=== PATIENT | female | born 1935 | race Caucasian/White ===

== ENCOUNTER 2017-07-25 11:23 | Inpatient (IN) ==
[~2017-07-25 11:23] MED LIST: CALCIUM CHLORIDE 1,000 MG/10 ML VIAL IV ONE; ETOMIDATE 20 MG/10 ML VIAL IV ONE; FUROSEMIDE 20 MG/2 ML VIAL ONE; LIDOCAINE 100 MG/5 ML SYRINGE ONE; ONDANSETRON 4 MG/2 ML VIAL ONE; PHENYLEPHRINE 50 MG/5 ML VIAL ONE; ROCURONIUM 100 MG/10 ML VIAL IV ONE; SODIUM BICARBONATE 50 MEQ/50 ML VIAL IV ONE
[2017-07-25] MEDS ORDERED: ONDANSETRON 4 MG/2 ML VIAL IV STA (11:59)
[2017-07-25] MEDS ORDERED: HYDROmorphone 2 MG/1 ML VIAL IV STA (11:59)
[2017-07-25] MEDS ORDERED: HEPARIN 5,000 UNIT/1 ML VIAL IV STA (12:00)
[2017-07-25 12:07] LABS: Basophils % 0.1 % (0.0-0.8); Hematocrit 35.5 VOL% (35.7-47.0); Immature Granulocytes % 0.7 %; Lymphocytes # 0.7 10*3/uL (1.4-4.0); Lymphocytes % 2.7 % (21.3-54.2); Mean Corpuscular HGB Conc 33.8 GM/DL (32-36); Mean Corpuscular Hemoglobin 31 PG (27-34); Mean Platelet Volume 10.6 FL (9.6-12.0); Monocytes # 1.6 10*3/uL (0.11-0.8); Monocytes % 6.1 % (1.7-12.7); Neutrophils # 24.5 10*3/uL (1.4-7.4); Neutrophils % 90.4 % (38.7-73.9); Platelet Count 337 T/CUMM (130-400); Red Cell Distribution Width 14.6 % (9.3-17.3); White Blood Count 27.1 T/CUMM (4-12)
--- NOTE | 2017-07-25 12:07 | Emergency Department Note ---
Yandel Aguirre Brooke, am scribing for, and in the presence of, Julio Avila MD 12:02 . Margarita Aguirre James D, MD, personally performed the services described in this documentation, ascribed by Joleen Humphries in my presence, and it is both accurate and complete . Arrival - Arrival Chief Complaint: Extremity Problem Stated Complaint: Extrem pain ED Nursing Triage Note: left leg pain onset x 2 months - pt was transfer from [facility] - pt states that she was seen and treated for same c/o on Monday at [facility] and dx with poor circulation - pt has discoloration to left leg and no palpable pulse present Mode of Arrival: Stretcher Limitations: No Limitations Source: Patient, EMS, RN Notes Reviewed Time Seen by Provider: 07/25/17 11:55 - History of Present Illness HPI Narrative: Patient is a 82 year old female who was brought into the ED, by EMS from [facility], with c/o left leg pain. Patient has history of peripheral vascular disease. She says she has been having the left leg pain for the past two months but the pain just recently worsened. Patient states that she was seen over the weekend in the emergency department at [facility]. Verbal report from the emergency physician transferring the patient today was that the patient had a pulse that could be dopplered. Her left leg, from the knee down, is now mottled and cold to touch. She is able to move the foot but has not sensation. Patient says she "can't hardly walk without a walker." She also has PMHx of HTN, pacemaker, obstructive sleep apnea, and COPD but no history of kidney disease. Patient quit smoking about four to five years ago. She does not have a physician that follow the peripheral vascular disease. Her Event Producer is Dr. Brown. Onset (ago): month(s) (2) Date of Last Menstrual Period: susu Allergies/Adverse Reactions: Allergies Allergy/AdvReac Type Severity Reaction Status Date / Time ampicillin Allergy Severe RASH Verified 02/08/16 06:33 Home Medications: Home Medications Medication Instructions Recorded Confirmed Type Atorvastatin [Lipitor] 20 mg PO QAM 01/15/16 07/25/17 History Benazepril HCl 20 mg PO QAM #0 01/15/16 07/25/17 History Budesonide/Formoterol 160-4.5 1 puff INH DAILY 01/15/16 07/25/17 History [Symbicort 160-4.5] Dabigatran [Pradaxa] 150 mg PO BID 01/15/16 07/25/17 History Furosemide 40 mg PO QAM 01/15/16 07/25/17 History Metoprolol Tartrate 1 tablet PO BID 01/15/16 07/25/17 History Potassium Chloride 20 meq PO QAM #0 01/15/16 07/25/17 History Albuterol Sulfate [Proair HFA] 2 puff INH Q4H PRN 07/25/17 07/25/17 History Carvedilol [Carvedilol] 3.125 mg PO BID 07/25/17 07/25/17 History Cholecalciferol [Vitamin D3] 2,000 unit PO QAM 07/25/17 07/25/17 History Clopidogrel Bisulfate [Clopidogrel] 75 mg PO QAM 07/25/17 07/25/17 History Meloxicam [Mobic] 7.5 mg PO QAM 07/25/17 07/25/17 History Montelukast Tab [Singulair Tab] 10 mg PO QAM 07/25/17 07/25/17 History Rosuvastatin Calcium [Crestor] 40 mg PO QAM 07/25/17 07/25/17 History Review of System - Review of System 12 point system: reviewed and no additional remarkable complaints except as stated - Review of System Constitutional: Absent: fever Respiratory: Absent: respiratory distress Musculoskeletal: Present: leg pain (left) Skin: Present: other (Left leg, from the knee down, is now mottled and cold to touch.). Absent: rash Medical,Surgical,& Family Hx - Medical History Cardio: History of: Hypertension, Pacemaker (DR [facility] GETTING RECORDS) HEENT: History of: Eye Problem (CATARACTS) Respiratory: History of: COPD, Obstructive Sleep Apnea (CPAP) Musculoskeletal: History of: Musculoskeletal Problems (FX RIGHT PROXIMAL HUMERUS ) - Surgical History HEENT Surgeries: Surgical HX of: Eye Surgery (CATARACTS) Abdominal Surgeries: Patient denies: Abdominal Surgery Orthopedic Surgeries: Surgical HX of;: Orthopedic Surgery (02/08/16 Sched for ORIF Rt Proximal Humerus) - Family History Family History: Reports;: Family Cancer (father), Family Heart Disease (mother) - Social History Smoking Status: Former smoker Frequency of Alcohol Use: None Type of Drug Use: None Exam Vital Signs: Vital Signs Temperature 98.1 F 07/25/17 11:46 Pulse Rate 88 07/25/17 11:46 Respiratory Rate 20 07/25/17 11:46 Blood Pressure 94/47 07/25/17 11:46 O2 Sat by Pulse Oximetry 93 L 07/25/17 11:28 GENERAL: This is a chronically ill-appearing white female in mild distress. VITAL SIGNS: Reviewed HEENT: Head is atraumatic and normocephalic. Pupils are equal round react to light. Extraocular movements are intact. Oropharynx is benign with moist mucous membranes. NECK: Neck is soft and supple without tenderness. There are no masses. There is no lymphadenopathy. LUNGS: Lungs are clear to auscultation. Chest rises symmetrically. There is no chest wall tenderness. CV: Heart is irregularly irregular without murmurs rubs or gallops. ABDOMEN: Abdomen is soft, nontender to palpation. There are no abdominal abnormal masses palpated. There is no organomegaly. Bowel sounds are present and active. SKIN: Left leg is cool and mottled from the knee distally. Patient has full range of motion her left foot. Left foot is insensate. EXTREMITIES: Patient has full range of motion without tenderness. There is no pedal edema. NEUROLOGIC: Awake alert and oriented 4. Cranial nerves II through XII are grossly intact. Motor is 5 over 5 in all extremities bilaterally. Decreased sensation in the left lower extremity from the knee distally to light touch. Course Course Narrative: Patient was given Dilaudid, Zofran, and heparin 4000 units IV push in the emergency department. Patient was given D50, insulin, and sodium bicarb for hyperkalemia. Echocardiogram was performed in the emergency department due to patient's atrial fib and possible thrombus. Patient will be taken to IR suite for arteriogram for evaluation of further intervention. - Consultations Consultation #1: Discussed with Dr. Bustos documentation lead for vascular surgery. Time: 12:54 Consultation #2: Discussed with Dr. Mtz interventional radiology. Time: 12:54 Results - Labs CBC & BMP: 07/25/17 11:48 07/25/17 11:48 Lab Results: I have reviewed the patients labs Labs: Echocardiogram preliminary report: No thrombus. - EKG EKG results: interpreted by ERMD - Impressions EKG: Atrial fib with a rate of 89, left axis deviation, low voltage QRS. - Diagnostic Findings Procedure: Chest x-ray: image reviewed by me (No cardiomegaly, no pleural effusions, pacemaker with leads present), CT: image reviewed by me, report reviewed by me (CT angiogram abdomen with femoral runoff:) Critical Care Time Critical Care Time: Yes Total Critical Care Time: 90 Disposition Clinical Impression: Peripheral vascular disease, Ischemia of left lower extremity, Hyperkalemia, Acute renal failure Case discussed with: patient Disposition: Still a Patient Condition: Guarded
--- NOTE | 2017-07-25 12:07 | Order Completion Report ---
See report scanned to EMR
[2017-07-25 12:15] LABS: INR 1.3; PT Patient Result 14.1 SECS
[2017-07-25 12:26] LABS: Lymphocytes 6 % (20-55); Platelet Estimate Adequate; Segmented Neutrophils 88 % (50-85); Total Cells Counted 100
[2017-07-25 12:27] LABS: Giant Platelets Few; Hypochromasia 1+; Ovalocytes Slight
[2017-07-25 12:29] LABS: Calcium 8.8 MG/DL (8.5-10.1); Osmolality,Calculated 275.4 MOS/KG (273-304)
--- NOTE | 2017-07-25 12:38 | XRay Report ---
Exam: XR chest 1V portable Date: 07/25/2017 11:59 AM Indication: Tobacco abuse left lower extremity pain DVT Comparison: 01/15/2016 Technical:AP Findings: Cardiac pacing device in place from a left-sided approach with atrial ventricular leads. Heart is normal in size. Mild scarring in the lung gutierrez without acute infiltrates. ASVD is present. Previous plate and screws stabilizing old right humeral head and neck fracture. No pneumothorax. Minimal apical pleural thickening on the right as compared to the left. Impression: 1. Stable appearance of the cardiac pacing device 2. Underlying component of COPD and fibrotic scarring 3. Interval placement of a side plate and screws stabilizing right humeral head and neck fracture when compared to prior study PROCEDURE INTERPRETED AT [facility] DEPARTMENT OF RADIOLOGY Final Report Signed by: Dr. Maximo Munoz
[2017-07-25 12:46] LABS: Potassium 7.9 MMOL/L (3.5-5.1)
[2017-07-25] MEDS ORDERED: ONDANSETRON 4 MG/2 ML VIAL ONE (12:46)
[2017-07-25] MEDS ORDERED: DEXTROSE 50% 25 GM/50 ML VIAL IV STA (12:46)
[2017-07-25] MEDS ORDERED: INSULIN REGULAR 100 UNIT/ML IV STA (12:46)
[2017-07-25] MEDS ORDERED: SODIUM BICARBONATE 50 MEQ/50 ML VIAL IV STA ×2 (12:46→21:31)
[2017-07-25] MEDS ORDERED: HEPARIN 5,000 UNIT/1 ML VIAL ONE ×5 (12:47→19:41)
[2017-07-25] MEDS ORDERED: HYDROmorphone 2 MG/1 ML VIAL ONE (12:47)
[2017-07-25] MEDS ORDERED: SODIUM CHLORIDE 0.9% 1,000 ML IV STA (12:52)
[2017-07-25 12:54] LABS: Apearance,Urine CLOUDY (Clear); Bilirubin,Urine Negative (Negative); Blood, Urine Moderate mg/dL (Negative); Glucose,Urine (UA) Negative (Negative); Ketones,Urine Negative (Negative); Nitrite,Urine Negative (Negative); Protein,Urine 30 MG/DL; RBC,Urine 4 /HPF (0-4); Squamous Epithelial Cell,Urine Occasional /HPF (0-10); Urine Color Yellow (Yellow); Urine Specific Gravity 1.011 (1.001-1.035); Urine Urobilinogen < 2.0 EU/DL (0.2-1.0); WBC,Urine 4 /HPF (0-6)
[2017-07-25] MEDS ORDERED: SODIUM BICARBONATE 50 MEQ/50 ML SYRINGE IV ONE ×4 (12:57→19:30)
[2017-07-25] MEDS ORDERED: DEXTROSE 50% 25 GM/50 ML SYRINGE IV ONE (12:57)
[2017-07-25] MEDS ORDERED: INSULIN REGULAR 100 UNIT/ML ONE (12:58)
[2017-07-25] MEDS ORDERED: HEPARIN/NACL 0.9% 2 UNITS/ML 0 ML IV ONE (13:43)
[2017-07-25] MEDS ORDERED: THROMBIN TOPICAL (RECOMBINANT) 5,000 UNIT VIAL TOP ONE ×2 (14:05→19:41)
[2017-07-25] MEDS ORDERED: VANCOMYCIN 500 MG VIAL ONE (14:05)
[2017-07-25] MEDS ORDERED: ALBUTEROL/IPRATROPIUM 3 ML NEB RESP TX STA (14:39)
[2017-07-25] MEDS ORDERED: CIPROFLOXACIN INJ 400 MG in PREMIX 1 EACH IV STA (14:46)
--- NOTE | 2017-07-25 14:56 | General Surg History&Physical ---
Assessment and Plan (1) Ischemia of left lower extremity Status: Acute Assessment and plan: Ms. Fay appears to have an acutely ischemic left lower leg and I suspect occlusion of the femoral artery based on the CT angiogram done in May and her current findings. I have recommended to her and have spoken with her son Casa Nieto by telephone of the significance of the current situation that I suspect that she has ischemic leg that is contributing to her acute renal failure and hyperkalemia I think that our best approach is going to be a femoral cutdown probably an endarterectomy and thrombectomy and hopefully I can restore reasonable flow into the left lower leg. I did explain that a fasciotomy may be necessary that I certainly cannot promise limb salvage. I did explain to her son that with her other multiple medical issues and her age that she may not tolerate or survive this acute illness we will give every effort we reasonably can bring her through and provide limb salvage. I did specifically explained the risks of bleeding infection limb loss worsening renal failure and acute cardiac issues. Current Visit: Yes History of Present Illness Chief complaint: acutely ischemic left lower leg History of present illness: Ms. Antonio is a 82 year old female Mrs. Antonio is an 82-year-old woman with significant past medical history but comes to the emergency room with an acutely ischemic left lower leg. She reports that for the past 3-4 weeks she has had progressive discomfort in the left lower leg she is on the physician approximately 2 weeks ago and was recommended observation she has been seen in the emergency room twice that [place] for left lower leg pain and was seen I believe the last week and seen there and at that time had a Doppler pulse in her foot also notably had a creatinine of 1.6 she comes to the emergency room here to [facility] today with an obvious acutely ischemic left lower leg she has mottling and coolness of the entire left lower leg from the knee down she has developed progressive paresthesia while in the emergency room the right leg shows evidence of chronic ischemia but no evidence of acute ischemia patient's past medical history is significant in that she apparently had an aortic stent graft placed sometime in [place] in the last 4-5 years we do not have any details of that procedure. She was telling us that she had stents in the legs but from the CTA that was done in May clearly no evidence of stents in her left lower in either lower leg. The CTA did indicate significant plaquing at the common femoral on the left and with diffuse disease up and down the superficial femoral popliteal artery appeared to be open the tibial vessels showed diffuse disease. Also on today's admission she was found to have a potassium of 7.9 and a creatinine of over 4. These are new findings and may be associated with rhabdomyolysis associated with ischemia of the left lower leg. Dr. Mtz and I discussed treatment options and in reviewing the CTA we feel that it is better to approach this with an open fashion and my plan will therefore be a left femoral artery exploration with endarterectomy thrombectomy and hopefully revascularization also consider the possibility that fasciotomies of the lower leg may be necessary. Home Medications Medication Instructions Recorded Confirmed Type Atorvastatin [Lipitor] 20 mg PO QAM 01/15/16 07/25/17 History Benazepril HCl 20 mg PO QAM #0 01/15/16 07/25/17 History Budesonide/Formoterol 160-4.5 1 puff INH DAILY 01/15/16 07/25/17 History [Symbicort 160-4.5] Dabigatran [Pradaxa] 150 mg PO BID 01/15/16 07/25/17 History Furosemide 40 mg PO QAM 01/15/16 07/25/17 History Metoprolol Tartrate 1 tablet PO BID 01/15/16 07/25/17 History Potassium Chloride 20 meq PO QAM #0 01/15/16 07/25/17 History Albuterol Sulfate [Proair HFA] 2 puff INH Q4H PRN 07/25/17 07/25/17 History Carvedilol [Carvedilol] 3.125 mg PO BID 07/25/17 07/25/17 History Cholecalciferol [Vitamin D3] 2,000 unit PO QAM 07/25/17 07/25/17 History Clopidogrel Bisulfate [Clopidogrel] 75 mg PO QAM 07/25/17 07/25/17 History Meloxicam [Mobic] 7.5 mg PO QAM 07/25/17 07/25/17 History Montelukast Tab [Singulair Tab] 10 mg PO QAM 07/25/17 07/25/17 History Rosuvastatin Calcium [Crestor] 40 mg PO QAM 07/25/17 07/25/17 History Allergies Allergy/AdvReac Type Severity Reaction Status Date / Time ampicillin Allergy Severe RASH Verified 02/08/16 06:33 Medical,Surgical,& Family Hx - Medical History Cardio: History of: Aneurysm, Hypertension, Pacemaker ([facility] GETTING RECORDS) HEENT: History of: Eye Problem (CATARACTS) Respiratory: History of: COPD, Obstructive Sleep Apnea (CPAP) Musculoskeletal: History of: Musculoskeletal Problems (FX RIGHT PROXIMAL HUMERUS ) - Surgical History HEENT Surgeries: Surgical HX of: Eye Surgery (CATARACTS) Abdominal Surgeries: Patient denies: Abdominal Surgery Orthopedic Surgeries: Surgical HX of;: Orthopedic Surgery (02/08/16 Sched for ORIF Rt Proximal Humerus) Additional Surgical History: Appears to have had a endovascular repair of an abdominal aortic aneurysm while in [place]. We do not have any details of that surgery - Family History Family History: Reports;: Family Cancer (father), Family Heart Disease (mother) - Social History Smoking Status: Former smoker Frequency of Alcohol Use: None Type of Drug Use: None Exam - Constitutional Vitals: Period Temp Pulse Resp BP Sys/Acosta Pulse Ox Last 24 Hr 98.1 F-98.1 F 84-113 16-24 84-167/47-87 91-99 General appearance: over weight - Head Head exam: Present: normal inspection - Eye Eye exam: Present: EOMI Pupils: Present: VARGAS - ENT ENT exam: Present: normal external ear exam Mouth exam: Present: normal voice - Neck Neck exam: Present: trachea midline - Respiratory Respiratory exam: Present: clear to auscultation bilaterally - Cardiovascular Cardiovascular exam: Present: RRR - GI/Abdominal GI/Abdominal exam: Present: soft - Expanded Left Lower Neuro vascular tendon exam: Present: extremity cold to touch, motor deficit, pulse deficit Gait: Present: not tested/not observed - Back Exam Back exam: Present: normal inspection - Neurological Exam Neurological exam: Present: alert, oriented X3 Speech: Present: normal - Constitutional Constitutional: Present: weakness - Cardiovascular Cardiovascular: Present: claudication, dyspnea on exertion - Respiratory Respiratory: Present: other (COPD reported still smoking) Results - Labs CBC & BMP: 07/25/17 11:48 07/25/17 11:48
[2017-07-25] MEDS ORDERED: CIPROFLOXACIN 400 MG/200 ML PREMIX IV ONE (15:13)
[2017-07-25 15:31] LABS: ABG Base Excess -6.5 MMOL/L (-2.5-2.5); ABG HCO3 19.1 MMOL/L (20-26); ABG Oxygen Saturation 98.7 % (95-100); ABG PCO2 41.9 MM HG (35-48); ABG PH 7.283 (7.35-7.45); ABG TCO2 18.4 MMOL/L (23-27); Glucose Heart Surgery 110 MG/DL (74-106); Hematocrit Heart Surgery 28.9 PERCENT (37-47); Hemoglobin Heart Surgery 9.3 G/DL (12.0-16.0); Ionized Calcium Arterial 1.37 MMOL/L (1.21-1.46); PCO2 Patient Temp Arterial 41.9 MMHG; PH Patient Temp Arterial 7.283; Patient Temperature 37 CELCIUS; Sodium Heart/CVR 129 MMOL/L (135-145)
[2017-07-25 15:34] LABS: Potassium Heart/CVR 6.4 MMOL/L (3.5-5.1)
[2017-07-25] MEDS ORDERED: ONDANSETRON 4 MG/2 ML VIAL IV PRN (17:55)
[2017-07-25] MEDS ORDERED: LACTATED RINGERS 1,000 ML IV SCH (18:00)
--- NOTE | 2017-07-25 18:12 | Operative Note ---
Date of procedure: 07/25/17 Procedure: Dr. Bustos operative report Adriel Antonio. Surgeon: Akash Interventional radiologist: Biib Anesthesiologist: Kitty rich Preoperative diagnosis: Acutely ischemic left leg Postoperative diagnosis: Acutely ischemic left leg secondary to the left iliac and femoral occlusion. Procedure: Left common femoral artery endarterectomy with patch graft angioplasty on table arteriography and placement of left external iliac fluency stent. Indication for the procedure: Ms. Nuñez is an 82-year-old woman who comes to the emergency room today with acutely ischemic left leg interestingly she had been having progressive symptoms over the last months at a CT angiogram done approximately a month ago that revealed an old aortic endograft assumed for aneurysmal disease the CT scan is evaluated Dr. Mtz and I evaluated the situation and felt that an exploration of the left common femoral artery with thrombectomy and angioplasty endarterectomy would be appropriate was discussed this with Ms. Antonio and her son by telephone and they agreed with the plan. Description of the procedure: After the induction of general endotracheal anesthesia the patient's abdomen and left leg to the ankle are prepped with ChloraPrep and draped in usual fashion Ioban was placed over the groin and foot was placed in isolation bag I made an incision over the femoral canal and carried this down to the femoral canal initially to the femoral artery I exposed the superficial femoral artery and then the profunda and then noted fairly extensive scarring of the common femoral and the distal external iliac associated with the closure of her artery from the endograft I assume it appeared that there were some gm or perhaps a closure device I had not seen a significant scar in area so I think this may have been a percutaneous closure device. It arrived there was a difficult dissection until I could get well under the inguinal ligament and controlled external iliac artery noting a very poor pulse at this stage I control the external iliac artery the profunda and superficial femoral arteries the patient had been given heparin preoperatively was given another 2000 of heparin intraoperatively I opened the artery on the proximal superficial femoral noting extensive atherosclerotic changes there was some backbleeding from the superficial femoral dissected further down actually did a proximal endarterectomy came to better superficial femoral artery approximately 2 cm distal to the bifurcation I was able to pass a Lizeth catheter to about the level of the proximal popliteal it would not pass any further and I did not attempt to force it I did have backbleeding this was controlled with a vessel loop I then has severe plaquing at the origin of the profunda and there was extensive scarring on the anterior aspect of the superficial femoral artery I opened these and did an endarterectomy of the area I did get backbleeding from the profunda but felt I needed to dissected further out to get an adequate endarterectomy this was done down to the first branches of the profunda this was controlled with a vessel loop and I did a partial endarterectomy I did an endarterectomy of the proximal profunda and then did endarterectomy of the common femoral but did not have very good flow from proximal I was able to pass a catheter and a Glidewire up into the graft Dr. tMz joined the case at this point in time we did arteriography examining the endograft noting good flow we had stent actually pass the hypogastric artery and there was extensive plaquing of the external iliac Dr. Mtz then I was able to pass a 8 x 6 60 fluency covered graft into the external iliac we did a completion arteriogram that showed no extravasation and what appeared to be good flow to the level of our endarterectomy I did note markedly improved pulse and flow at this level I chose a bovine pericardial patch trimmed it to fit over the arteriotomy I combined the proximal profunda and superficial femoral posteriorly with 6-0 Prolene suture and then trimmed the larger of the bovine pericardial patches and used it to close the arteriotomy with running 6-0 Prolene suture flushed approximately prior to completing the anastomosis and then restored flow noting a good flow into the superficial femoral and reasonable flow into the profunda. Heparin was partially reversed with 25 protamine I did suture a couple of bleeding sites I used Tisseel over the arteriotomy notably this patient had been on Pradaxa which we did not try to reverse prior to the surgery we had fair control I used a 383 32nd Hemovac drain brought out inferior to the incision to allow drainage of the site this was then closed with 2 layers of 2-0 Monocryl and skin clips blood loss is estimated at 450 cc her foot appeared to be showing improved perfusion at completion of the procedure with the bit more pinkness as opposed to the mottled cyanotic foot that was present when we started patients taken to recovery room in critical condition due to her overall medical status and the acuteness of the surgical intervention that we had to employ sponge needle and instrument counts are correct. Surgeon / Physician: Demario Bustos Results - Labs CBC & BMP: 07/25/17 15:25 07/25/17 11:48 Discharge Plan - Discharge Medications No Action Benazepril HCl 20 mg PO QAM #0 Atorvastatin [Lipitor] 20 mg PO QAM Dabigatran [Pradaxa] 150 mg PO BID Budesonide/Formoterol 160-4.5 [Symbicort 160-4.5] 1 puff INH DAILY Furosemide 40 mg PO QAM Metoprolol Tartrate 1 tablet PO BID Potassium Chloride 20 meq PO QAM #0 Rosuvastatin Calcium [Crestor] 40 mg PO QAM Montelukast Tab [Singulair Tab] 10 mg PO QAM Meloxicam [Mobic] 7.5 mg PO QAM Carvedilol [Carvedilol] 3.125 mg PO BID Albuterol Sulfate [Proair HFA] 2 puff INH Q4H PRN PRN Reason: Shortness Of Breath/Wheezing Clopidogrel Bisulfate [Clopidogrel] 75 mg PO QAM Cholecalciferol [Vitamin D3] 2,000 unit PO QAM - Follow Up or Referral - Forms/Instructions
--- NOTE | 2017-07-25 18:21 | Anesthesia Post-Op ---
Anesthesia Post OP - Post Ansesthetic Evaluation Patient seen in post op: Yes Resp: within normal limits (pt remains ventikated) CV: within normal limits (pt remains on trisha gtt) Mental: within normal limits (pt remains sedate) Temp: within normal limits [id number]: within normal limits Nausea and Vomiting: within normal limits Pain: within normal limits
--- NOTE | 2017-07-25 18:36 | Event Note ---
Ms. Antonio is reasonably stable postop that foot is still cool but the lower leg seems to be warming up. She has got a good bit of continued bruising into the Hemovac think this may be the Pradaxa but I do not think we have the reversing agent, the use of sandbag and the Hemovac drain to try to control it and hopefully the bleeding will slow down as time goes by
[2017-07-25] MEDS: PHENYLEPHRINE DRIP 40 MG/250 ML PREMIX IV SCH ×2 (18:40→21:46)
[2017-07-25] MEDS ORDERED: SODIUM CHLORIDE 0.9% 250 ML IV PRN ×2 (18:40→18:44)
[2017-07-25] MEDS ORDERED: PHENYLEPHRINE DRIP 40 MG/250 ML PREMIX IV ONE (18:42)
[2017-07-25 18:48] LABS: ABG Base Excess -0.9 MMOL/L (-2.5-2.5); ABG Oxygen Saturation 40.2 % (95-100); ABG PCO2 48.3 MM HG (35-48); ABG PH 7.327 (7.35-7.45); ABG TCO2 24.1 MMOL/L (23-27)
[2017-07-25 18:49] LABS: ABG PO2 25.6 MM HG (80-95)
[2017-07-25] MEDS ORDERED: ALBUTEROL 2.5 MG/3 ML NEB RESP TX PRN (19:00)
[2017-07-25 19:05] LABS: Basophils % 0.1 % (0.0-0.8); Eosinophils # 0.1 10*3/uL (0.0-0.87); Eosinophils % 0.3 % (0.00-10.9); Hematocrit 19.4 VOL% (35.7-47.0); Hemoglobin 6.7 GM/DL (12.0-16.0); Immature Granulocytes % 1.1 %; Immature Granulocytes Absolute 0.22 #; Lymphocytes # 2.3 10*3/uL (1.4-4.0); Mean Corpuscular HGB Conc 34.5 GM/DL (32-36); Mean Corpuscular Hemoglobin 32 PG (27-34); Mean Corpuscular Volume 91.5 FL (87-102); Monocytes % 9.4 % (1.7-12.7); Neutrophils # 16.3 10*3/uL (1.4-7.4); Neutrophils % 78.1 % (38.7-73.9); Platelet Count 241 T/CUMM (130-400); Red Blood Count 2.12 MC/CUMM (3.8-5.5); Red Cell Distribution Width 14.6 % (9.3-17.3); White Blood Count 20.8 T/CUMM (4-12)
--- NOTE | 2017-07-25 19:09 | Event Note ---
Ms. Penaloza was initially stable on arrival in his care unit after surgery but then suddenly developed hypotension she has been started on Ahmet-Synephrine with blood pressure now holding at about 8070-80 systolic heart rate is been's as it was in the low 100s. We do not have an immediate postop H&H but she seems to be developing a retroperitoneal hematoma on the left side which is not unexpected with the stenting that we did of the external iliac artery. She is on Plavix and Pradaxa . I have concerns that she is developed this in the area of the external iliac stenting and feel that an exploration may be necessary urgently. IV access was difficult and I have placed a right internal jugular catheter under ultrasound guidance urgently in the intensive care unit chest x- ray shows it in good position also shows no evidence of pneumothorax to be the cause of tension. My thoughts are going to be to go ahead and transfuse 1 unit of platelets 2 fresh frozen and 2 units of packed cells and plan to probably go to the emergency to the operating room for attempt to control the bleeding
[2017-07-25] MEDS ORDERED: SODIUM CHLORIDE 0.9% 1,000 ML IV ONE ×2 (19:21→23:02)
[2017-07-25 19:24] LABS: ABG Base Excess 17.7 MMOL/L (-2.5-2.5); ABG HCO3 41.7 MMOL/L (20-26); ABG Oxygen Saturation 99.9 % (95-100); ABG PH 7.568 (7.35-7.45); ABG TCO2 40.4 MMOL/L (23-27)
--- NOTE | 2017-07-25 19:24 | Event Note ---
Ms. Reyes continues to be hypotensive H&H is 6 and 19 I think that it is imperative that we return to the operating room for this retroperitoneal hematoma. I discussed this with both her sons explaining the critical nature of her illness and what I hoping to try to do the understand and agree.
[2017-07-25 19:30] LABS: Lymphocytes 10 % (20-55); Platelet Estimate Adequate; Segmented Neutrophils 83 % (50-85); Total Cells Counted 100
[2017-07-25] MEDS ORDERED: ROCURONIUM 100 MG/10 ML VIAL IV ONE (19:52)
[2017-07-25 19:57] LABS: Calcium 10.1 MG/DL (8.5-10.1); Osmolality,Calculated 298.7 MOS/KG (273-304)
[2017-07-25] MEDS: IDARUCIZUMAB IV SCH ×2 (20:00→21:41)
[2017-07-25] MEDS ORDERED: MICROFIBRILLAR COLLAGEN POWDER 1 GM CAN TOP ONE (20:14)
--- NOTE | 2017-07-25 20:23 | XRay Report ---
Portable chest Exam date: 07/25/2017 6:56 PM Indication: Line placement Comparison: Same date at 1242 hours Findings: Cardiomediastinal contours are stable. Interval satisfactory intubation and right jugular central venous catheter placement. Cardiac pacemaker remains unchanged in position. Lungs are clear bilaterally. No acute osseous abnormalities. Remote healed right second and third rib fractures are noted. Visualized upper abdomen demonstrates no acute pathology. Impression: Satisfactory tube and line placement. No acute cardiopulmonary findings PROCEDURE INTERPRETED AT [facility] DEPARTMENT OF RADIOLOGY Final Report Signed by: Hari Jacobs MD
--- NOTE | 2017-07-25 20:30 | Operative Note ---
Date of procedure: 07/25/17 Procedure: Adriel Antonio operative report Dr. Bustos. Surgeon: Akash Anesthesia: Kitty general endotracheal Preoperative diagnosis: Suspected left retroperitoneal hematoma Postoperative diagnosis modest left retroperitoneal hematoma Operation: Exploration of left retroperitoneal hematoma Indications: Ms. Fay 82-year-old woman had undergone a left femoral endarterectomy patch grafting and placement intraoperatively of the left external iliac stent due to extensive atherosclerotic disease this was a covered stent but there was some suggestion of a tear at the time of completion arteriography did not reveal extravasation the patient been taken to the recovery room and are to recover in the intensive care unit developed severe hypotension and modest tachycardia her H&H dropped precipitously to 6 and 19 felt that there was continued bleeding in the left retroperitoneal in the area of the iliac stent and recommended to her son's an exploration for control of any bleeding that was ongoing that they understood and accepted Description of the procedure patient is placed on the operating table in her lower abdomen prepped with ChloraPrep and Ioban and draped in usual fashion I made a left lower quadrant incision carried this in a muscle-splitting fashion into the retroperitoneum and then entered into the retroperitoneum along the left external and internal iliac arteries I noted moderate hematoma diffusely in the retroperitoneum but not a large hematoma as I had expected define I suspected 200 cc or less in the entire retroperitoneum although there was some dissection further up I did not encounter a large hematoma. I examined the artery thoroughly I can easily palpate the stents and visualizing through the artery there was no tear and no ongoing bleeding I continued this all the way down to the area of the recent surgery and again no significant hematoma or ongoing bleeding I therefore packed this area with Avitene placed a 10 SABI drain and brought it out superior to the incision and then closed the incision in layers with 2-0 Monocryl through the transversalis and internal oblique and through the external oblique subcu and then closed the skin with skin clips active blood loss intraoperatively is less than 100 cc sponge needle and his counts are correct the patient returns to intensive care in critical condition but improving with transfusion Surgeon / Physician: Demario Bustos Results - Labs CBC & BMP: 07/25/17 19:00 07/25/17 19:00 Discharge Plan - Discharge Medications No Action Benazepril HCl 20 mg PO QAM #0 Atorvastatin [Lipitor] 20 mg PO QAM Dabigatran [Pradaxa] 150 mg PO BID Budesonide/Formoterol 160-4.5 [Symbicort 160-4.5] 1 puff INH DAILY Furosemide 40 mg PO QAM Metoprolol Tartrate 1 tablet PO BID Potassium Chloride 20 meq PO QAM #0 Rosuvastatin Calcium [Crestor] 40 mg PO QAM Montelukast Tab [Singulair Tab] 10 mg PO QAM Meloxicam [Mobic] 7.5 mg PO QAM Carvedilol [Carvedilol] 3.125 mg PO BID Albuterol Sulfate [Proair HFA] 2 puff INH Q4H PRN PRN Reason: Shortness Of Breath/Wheezing Clopidogrel Bisulfate [Clopidogrel] 75 mg PO QAM Cholecalciferol [Vitamin D3] 2,000 unit PO QAM - Follow Up or Referral - Forms/Instructions
[2017-07-25] MEDS ORDERED: ALBUTEROL/IPRATROPIUM 3 ML NEB RESP TX ONE (21:02)
[2017-07-25 21:09] LABS: Hematocrit 20.7 VOL% (35.7-47.0); Hemoglobin 7.2 GM/DL (12.0-16.0)
[2017-07-25 21:19] LABS: INR 3.2
[2017-07-25 21:21] LABS: PT Patient Result 33.6 SECS; Partial Thromboplastin Time 82.5 SECS (0-40)
[2017-07-25 21:26] LABS: ABG Base Excess -5.5 MMOL/L (-2.5-2.5); ABG HCO3 19.9 MMOL/L (20-26); ABG Oxygen Saturation 99.4 % (95-100); ABG PCO2 39.4 MM HG (35-48); ABG PH 7.318 (7.35-7.45)
[2017-07-25] MEDS ORDERED: AMIODARONE INJ 450 MG in DEXTROSE 5% 241 ML IV SCH (21:30)
--- NOTE | 2017-07-25 21:30 | Anesthesia Procedures ---
Anesthesia Procedures - Arterial Line Consent obtained arterial line: written consent Time out performed arterial line: No (emergency) Size (Gauge): 20 Technique used arterial line: guide wire technique Post-Procedure: dry sterile dressing placed Patient tolerated procedure arterial line: well Complications art line: none Site: left, radial (per Dr. Tang)
[2017-07-25 21:34] LABS: Albumin 1.9 G/DL (3.4-5.0); Bilirubin,Total 0.4 MG/DL (0.2-1.0); Calcium 8.6 MG/DL (8.5-10.1); Total Protein 3.8 G/DL (6.4-8.3)
[2017-07-25 21:39] LABS: Potassium 6.2 MMOL/L (3.5-5.1)
[2017-07-25] MEDS: CARVEDILOL 3.125 MG TABLET PO SCH (22:13)
[2017-07-25] MEDS: METOPROLOL TARTRATE 25 MG TABLET PO SCH (22:13)
--- NOTE | 2017-07-25 22:59 | Order Completion Report ---
See report scanned to EMR
[2017-07-25 23:00] LABS: Hematocrit 27.3 VOL% (35.7-47.0); Hemoglobin 9.5 GM/DL (12.0-16.0)
[2017-07-25] MEDS ORDERED: fentaNYL 100 MCG/2 ML VIAL ONE (23:02)
[2017-07-25] MEDS ORDERED: MIDAZOLAM 2 MG/2 ML VIAL ONE (23:02)
[2017-07-25] MEDS: PHENYLEPHRINE INJ 80 MG in SODIUM CHLORIDE 0.9% 242 ML IV SCH (23:02)
[2017-07-25] MEDS ORDERED: FUROSEMIDE 20 MG/2 ML VIAL IV ONE (23:11)
[2017-07-25] MEDS: SODIUM CHLORIDE 0.9% 1,000 ML IV SCH (23:30)
[2017-07-26] MEDS ORDERED: SODIUM BICARBONATE 50 MEQ/50 ML SYRINGE IV ONE (01:00)
[2017-07-26] MEDS: IDARUCIZUMAB IV SCH ×2 (01:40→01:49)
[2017-07-26] MEDS: PHENYLEPHRINE INJ 80 MG in SODIUM CHLORIDE 0.9% 242 ML IV SCH ×4 (03:10→17:50)
[2017-07-26] MEDS: HYDROmorphone 2 MG/1 ML VIAL IV PRN ×5 (04:15→21:12)
[2017-07-26 04:16] LABS: ABG Base Excess -3.6 MMOL/L (-2.5-2.5); ABG HCO3 20.9 MMOL/L (20-26); ABG Oxygen Saturation 97.2 % (95-100); ABG PCO2 35.4 MM HG (35-48); ABG PH 7.388 (7.35-7.45); ABG PO2 99.2 MM HG (80-95); ABG TCO2 21.9 MMOL/L (23-27)
[2017-07-26 04:18] LABS: Basophils % 0.1 % (0.0-0.8); Hematocrit 31.1 VOL% (35.7-47.0); Hemoglobin 10.9 GM/DL (12.0-16.0); Immature Granulocytes % 0.5 %; Immature Granulocytes Absolute 0.07 #; Lymphocytes # 0.5 10*3/uL (1.4-4.0); Lymphocytes % 3.2 % (21.3-54.2); Mean Corpuscular Hemoglobin 30 PG (27-34); Mean Corpuscular Volume 84.1 FL (87-102); Mean Platelet Volume 10.5 FL (9.6-12.0); Monocytes # 0.7 10*3/uL (0.11-0.8); Monocytes % 4.5 % (1.7-12.7); Neutrophils % 91.7 % (38.7-73.9); Platelet Count 167 T/CUMM (130-400); Red Cell Distribution Width 18.4 % (9.3-17.3); White Blood Count 15.2 T/CUMM (4-12)
[2017-07-26 04:48] LABS: Calcium 8.2 MG/DL (8.5-10.1); Osmolality,Calculated 307.7 MOS/KG (273-304); Potassium 5.6 MMOL/L (3.5-5.1)
[2017-07-26] MEDS ORDERED: CALCIUM GLUCONATE 1,000 MG in SODIUM CHLORIDE 0.9% 100 ML IV ONE (05:00)
[2017-07-26 05:16] LABS: INR 1.2; PT Patient Result 12.8 SECS; Partial Thromboplastin Time 29.9 SECS (0-40)
[2017-07-26 06:06] LABS: Band Neutrophils 8 % (0-10); Lymphocytes 7 % (20-55); Promyelocytes 1 %; Segmented Neutrophils 80 % (50-85); Total Cells Counted 100
[2017-07-26 06:07] LABS: Burr Cells Slight; Hypochromasia 1+; Microcytosis 1+; Platelet Estimate Adequate
[2017-07-26] MEDS: PHENYLEPHRINE DRIP 40 MG/250 ML PREMIX IV SCH ×3 (06:34→21:06)
--- NOTE | 2017-07-26 06:34 | Pulmonology Consult Note ---
Assessment and Plan (1) Acute renal failure Status: Acute Assessment and plan: Creatinine elevated to 3.8 with hyperkalemia. Treating with hydration. Need renal to see. She does have adequate urine output. Current Visit: Yes (2) Ischemia of left lower extremity Status: Acute Assessment and plan: Status post endarterectomy left femoral artery. Current Visit: Yes (3) COPD (chronic obstructive pulmonary disease) Status: Acute Assessment and plan: Patient admits to having COPD. She is a former smoker. I will put her on regular dosing of DuoNeb's. No bronchospasm at present. I do not see any need for steroids. Current Visit: No (4) Postoperative respiratory failure Status: Acute Assessment and plan: ABGs acceptable. We will reduce FiO2. Start weaning trials. Need to get blood pressure stabilized and acidosis improved before we can get her extubated. Current Visit: Yes History of Present Illness Chief complaint: Left femoral endarterectomy post-op History of present illness: Ms. Antonio is a 82 year old female who came in with a cold painful left leg and was taken to surgery. She had a left femoral endarterectomy with a patch graft. Postoperatively she had retroperitoneal hematoma and had to go back to surgery. Presently she is on the ventilator. She is requiring pressors. She is responsive. She relates that she has a history of smoking and does have COPD. Not able to get more detailed history from the patient and she is on the ventilator. She has a mild metabolic acidosis. She has acute kidney injury. Likely and rhabdomyolysis Home Medications Medication Instructions Recorded Confirmed Type Atorvastatin [Lipitor] 20 mg PO QAM 01/15/16 07/25/17 History Benazepril HCl 20 mg PO QAM #0 01/15/16 07/25/17 History Budesonide/Formoterol 160-4.5 1 puff INH DAILY 01/15/16 07/25/17 History [Symbicort 160-4.5] Dabigatran [Pradaxa] 150 mg PO BID 01/15/16 07/25/17 History Furosemide 40 mg PO QAM 01/15/16 07/25/17 History Metoprolol Tartrate 1 tablet PO BID 01/15/16 07/25/17 History Potassium Chloride 20 meq PO QAM #0 01/15/16 07/25/17 History Albuterol Sulfate [Proair HFA] 2 puff INH Q4H PRN 07/25/17 07/25/17 History Carvedilol [Carvedilol] 3.125 mg PO BID 07/25/17 07/25/17 History Cholecalciferol [Vitamin D3] 2,000 unit PO QAM 07/25/17 07/25/17 History Clopidogrel Bisulfate [Clopidogrel] 75 mg PO QAM 07/25/17 07/25/17 History Meloxicam [Mobic] 7.5 mg PO QAM 07/25/17 07/25/17 History Montelukast Tab [Singulair Tab] 10 mg PO QAM 07/25/17 07/25/17 History Rosuvastatin Calcium [Crestor] 40 mg PO QAM 07/25/17 07/25/17 History Allergies Allergy/AdvReac Type Severity Reaction Status Date / Time ampicillin Allergy Severe RASH Verified 02/08/16 06:33 ROS unobtainable: due to endotracheal tube Exam (Pulmonay) H&P - Constitutional Vitals: Period Temp Pulse Resp BP Sys/Acosta Pulse Ox Last 24 Hr 93.9 F-98.1 F 84-118 10-24 57-167/37-101 80-100 Exam: Patient is on the ventilator, but responsive. She is calm. She nods to questions. Vital signs normal except her systolic blood pressure is 115 on pressure pulse is around 115 as well. Pupils react to light. Orotracheal tube is in place. Neck is supple. Chest shows prolonged expiratory phase but is otherwise clear. I do not hear any wheezing. Heart rate is rapid no murmurs. Abdomen soft. Some mild lower abdominal tenderness. Bowel sounds decreased but present. Extremities no clubbing cyanosis edema. Left leg bandaged Medical,Surgical,& Family Hx - Medical History Cardio: History of: Aneurysm, Hypertension, Pacemaker ([facility] GETTING RECORDS) HEENT: History of: Eye Problem (CATARACTS) Respiratory: History of: COPD, Obstructive Sleep Apnea (CPAP) Musculoskeletal: History of: Musculoskeletal Problems (FX RIGHT PROXIMAL HUMERUS ) - Surgical History Neurologic Surgeries: Patient denies: Neurologic Surgery HEENT Surgeries: Surgical HX of: Eye Surgery (CATARACTS) Abdominal Surgeries: Patient denies: Abdominal Surgery Reproductive Surgeries: Patient denies;: Gynecologic Surgery Orthopedic Surgeries: Surgical HX of;: Orthopedic Surgery (02/08/16 Sched for ORIF Rt Proximal Humerus) - Family History Family History: Reports;: Family Cancer (father), Family Heart Disease (mother) - Social History Smoking Status: Former smoker Frequency of Alcohol Use: None Type of Drug Use: None Results - Labs CBC & BMP: 07/26/17 04:00 07/26/17 04:00 Lab Results: I have reviewed the past 24 hour labs - Diagnostic Findings Procedure: Chest x-ray: image reviewed by me (Lungs clear. ET tube in good position)
[2017-07-26] MEDS ORDERED: MIDAZOLAM 2 MG/2 ML VIAL ONE (07:19)
[2017-07-26] MEDS ORDERED: fentaNYL 100 MCG/2 ML VIAL ONE (07:19)
[2017-07-26] MEDS: ALBUTEROL/IPRATROPIUM 3 ML NEB RESP TX SCH ×3 (07:31→19:02)
--- NOTE | 2017-07-26 08:06 | XRay Report ---
Exam: XR chest 1V portable Date: 07/26/2017 4:00 AM Indication: Follow-up intubation respiratory failure Comparison: 07/25/2017 Technical: AP Findings: Endotracheal tube nasogastric tube left-sided cardiac pacing device with atrial ventricular leads and a right IJ catheter is present. Right humeral head and neck fixation with sideplate and screws. No obvious infiltrates or effusions with ASVD. Cardiac pad is present external cardiac leads are noted. Impression: 1. Stable appearance of the life support tubing 2. No obvious infiltrates or effusions or pneumothorax 3. No significant interval change with previous right humeral head and neck fixation device noted PROCEDURE INTERPRETED AT [facility] DEPARTMENT OF RADIOLOGY Final Report Signed by: Dr. Maximo Munoz
--- NOTE | 2017-07-26 08:08 | Event Note ---
This morning Ms. Reyes remains on the ventilator and on high dose of Ahmet- Synephrine to help maintain blood pressure otherwise she has been relatively stable in this critical situation. He is making some urine and creatinine is 3.8 which is slightly down from before it was yesterday. H&H is stable and 31 white blood count as expected 50,000 platelet count is up a bit as well. Her left lower quadrant and groin are without significant hematoma modest drainage from the SABI and the Hemovac drains. Both feet show significant ischemia this is likely related to her severe peripheral vascular disease in addition to the large dose of pressor agents that she is on. She does appear to be awake and responsive appropriately. There was a good bit of oozing from her mouth and nose last night as well as from the wound she was therefore given extra fresh frozen plasma and Pradaxa reversal. This seems to have ceased this morning. We may try starting Lovenox this evening Primary goal would be if we can get her off the pressors.
[2017-07-26 08:51] LABS: ABG Base Excess -1.5 MMOL/L (-2.5-2.5); ABG HCO3 22.8 MMOL/L (20-26); ABG Oxygen Saturation 96.8 % (95-100); ABG PCO2 36.7 MM HG (35-48); ABG PH 7.411 (7.35-7.45); ABG PO2 93.6 MM HG (80-95); ABG TCO2 23.9 MMOL/L (23-27); Glucose Heart Surgery 78 MG/DL (74-106); Hemoglobin Heart Surgery 10.4 G/DL (12.0-16.0); Potassium Heart/CVR 5.4 MMOL/L (3.5-5.1)
[2017-07-26] MEDS ORDERED: FUROSEMIDE 40 MG TABLET PO SCH (09:00)
[2017-07-26] MEDS ORDERED: MONTELUKAST 10 MG TABLET PO SCH (09:00)
[2017-07-26] MEDS ORDERED: CLOPIDOGREL 75 MG TABLET PO SCH ×2 (09:00)
[2017-07-26] MEDS ORDERED: BENAZEPRIL 10 MG TABLET PO SCH (09:00)
[2017-07-26] MEDS ORDERED: ASPIRIN CHEW 81 MG TABLET PO SCH (09:00)
[2017-07-26 09:15] LABS: Partial Thromboplastin Time 54.3 SECS (0-40)
[2017-07-26] MEDS: CARVEDILOL 3.125 MG TABLET PO SCH (09:21)
[2017-07-26] MEDS: METOPROLOL TARTRATE 25 MG TABLET PO SCH ×2 (09:21→21:23)
[2017-07-26] MEDS: BUDESONIDE/FORMOTEROL 160-4.5 INHALER 6 GM INH SCH (09:22)
--- NOTE | 2017-07-26 10:05 | Ultrasound Report ---
Exam: US renal Bilateral Date: 07/26/2017 8:39 AM Indication: Renal failure Comparison: None Findings: Right kidney. 8.1 x 3.9 x 4.4 cm. There is increased echogenicity and questionable tiny amount of perinephric fluid present. Normal color flow is otherwise noted. No focal mass. Left kidney. 9.5 x 5.1 x 4.7 cm . There is mild increased echogenicity and minimal perinephric fluid collection. Normal color flow present. No hydronephrosis or perinephric fluid collections or focal mass present. Impression: 1. Medical renal disease of the kidneys. Ultrasound images were stored and captured PROCEDURE INTERPRETED AT [facility] DEPARTMENT OF RADIOLOGY Final Report Signed by: Dr. Maximo Munoz
--- NOTE | 2017-07-26 10:18 | Cardiology Consult Note ---
Sukh Aguirre Lesley, BERTA, am scribing for, and in the presence of, Raffaele Brown MD 10:11. Assessment and Plan (1) Ischemia of left lower extremity Status: Acute Assessment and plan: The patient presented with acute lower extremity ischemia/cold foot and was treated surgically. Perfusion has been improved but she is still critically ill. Current Visit: Yes (2) Hypotension Status: Acute Assessment and plan: We will continue to support her and treat the underlying problems. Hopefully we can wean her vasopressors. Fortunately, echo does show normal left ventricular function. Current Visit: Yes (3) Postoperative respiratory failure Status: Acute Current Visit: Yes (4) Retroperitoneal hematoma Status: Acute Assessment and plan: Status post surgical evacuation. Current Visit: Yes (5) Acute renal failure Status: Acute Assessment and plan: We will monitor this for now and hopefully this will improve. We may need nephrology assistance if not. Current Visit: Yes (6) Hyperkalemia Status: Acute Current Visit: Yes (7) COPD (chronic obstructive pulmonary disease) Status: Acute Current Visit: No (8) Hypertension Status: Acute Current Visit: No (9) Pacemaker Status: Acute Current Visit: Yes (10) Tachycardia Status: Acute Assessment and plan: The patient appears to be in a physiologic sinus tachycardia. We will continue to treat her underlying problems and support her and hopefully this will improve. Current Visit: Yes History of Present Illness - Data of Consult Patient: known to practice within the last 3 years Consult date: 07/26/17 Requesting Physician: Demario Bustos - Consult Narrative Reason for consult: medical management History of present illness: DIRECTOR OF COUNTERINTELLIGENCE: Dr. Brown The patient is seen and examined in ICU, she is intubated and therefore all information is obtained from medical records. Ms. Antonio is a 82 year old female, known to Dr. Brown. She has a past medical history significant for hypertension, hyperlipidemia, mitral regurgitation, paroxysmal atrial fibrillation, peripheral vascular disease, sleep apnea, CAD, pacemaker, and COPD. Past surgical history include abdominal aortic aneurysm repair, arm surgery, status post cardiac pacemaker, shoulder surgery, previous stent of bilateral iliacs. She was most recently seen by Dr. Brown in clinic 07/10/17 for a workup for claudication symptoms due to severe bilateral PAD. She had a history of bilateral stents including AAA endograft extending into the iliacs. ABIs showed diminished perfusion at 0.48 on the right and 0.22 on the left, and CTA showed long bilateral SFA occlusions with patent tibials per critical left popliteal disease as well. She was scheduled for peripheral angiography with intervention with Dr. Kunz but in the meantime presented with acute ischemic changes of her left leg. Apparently the left leg became cold with color changes noted, when she presented to the [facility] ER for and subsequently was transferred to [facility] ER. The patient was taken to surgery by Dr. Bustos on 07/25/17 due to acutely ischemic left leg for left femoral endarterectomy with left external iliac stent. The patient ended up urgently back to the OR to evacuate a retroperitoneal hematoma. She had a significant drop in her H&H at 6 and 19. The patient was transfused with total 6 units packed RBCs, 4 units of FFP, 1 unit of platelets. The patient is awake, but still intubated and on the ventilator. She follows simple commands with bilateral upper extremities. She has remained hypotensive , and is on a Ahmet-Synephrine infusion at 300 mcg per minute to support her blood pressure. She does appear to have some discomfort about the abdomen upon exam which is likely expected after her surgery. Echocardiogram revealed normal left ventricular size, and check EF 60-65%, mild concentric left ventricular hypertrophy, mildly enlarged right atrium, pacer lead noted in the right heart. Chest x-ray reveals stable appearance of life support tubing, no infiltrates, effusions, or pneumothorax. Pulmonary has been consulted for ventilator management. The plan for today will be to add sedation while the patient is intubated. Wean Ahmet-Synephrine to achieve better perfusion of lower extremities as her hypotension allows. We will hold all cardiac medications, as the patient is in sinus tachycardia which is likely physiologic due to critical illness. Hematology has been consulted as well for abnormal clotting times. IMPRESSION AND PLAN: 1. RESPIRATORY FAILURE -appreciate ventilator management by pulmonary 2. HYPOVOLEMIC SHOCK -H&H stable, continue fluids, Ahmet-Synephrine as needed for hypertension. 3. SEVERE ISCHEMIC PAD -continue to monitor left leg, and able to Doppler pulses bilaterally, color changes noted bilaterally, left > right. Wean Ahmet- Synephrine as tolerated. 4. ANEMIA -continue to monitor, H&H currently stable. 5. ABNORMAL CLOTTING TIME -Hematology consult for evaluation. CC: Demario Bustos MD - Home Medications and Allergies Home Medications: Home Medications Medication Instructions Recorded Confirmed Type Atorvastatin [Lipitor] 20 mg PO QAM 01/15/16 07/25/17 History Benazepril HCl 20 mg PO QAM #0 01/15/16 07/25/17 History Budesonide/Formoterol 160-4.5 1 puff INH DAILY 01/15/16 07/25/17 History [Symbicort 160-4.5] Dabigatran [Pradaxa] 150 mg PO BID 01/15/16 07/25/17 History Furosemide 40 mg PO QAM 01/15/16 07/25/17 History Metoprolol Tartrate 1 tablet PO BID 01/15/16 07/25/17 History Potassium Chloride 20 meq PO QAM #0 01/15/16 07/25/17 History Albuterol Sulfate [Proair HFA] 2 puff INH Q4H PRN 07/25/17 07/25/17 History Carvedilol [Carvedilol] 3.125 mg PO BID 07/25/17 07/25/17 History Cholecalciferol [Vitamin D3] 2,000 unit PO QAM 07/25/17 07/25/17 History Clopidogrel Bisulfate [Clopidogrel] 75 mg PO QAM 07/25/17 07/25/17 History Meloxicam [Mobic] 7.5 mg PO QAM 07/25/17 07/25/17 History Montelukast Tab [Singulair Tab] 10 mg PO QAM 07/25/17 07/25/17 History Rosuvastatin Calcium [Crestor] 40 mg PO QAM 07/25/17 07/25/17 History Allergies/Adverse Reactions: Allergies Allergy/AdvReac Type Severity Reaction Status Date / Time ampicillin Allergy Severe RASH Verified 02/08/16 06:33 ROS unobtainable: due to endotracheal tube Medical,Surgical,& Family Hx - Medical History Cardio: History of: Aneurysm, Hypertension, Pacemaker (DR MCGRATH ISLAM GETTING RECORDS) HEENT: History of: Eye Problem (CATARACTS) Respiratory: History of: COPD, Obstructive Sleep Apnea (CPAP) Musculoskeletal: History of: Musculoskeletal Problems (FX RIGHT PROXIMAL HUMERUS ) - Surgical History Neurologic Surgeries: Patient denies: Neurologic Surgery HEENT Surgeries: Surgical HX of: Eye Surgery (CATARACTS) Abdominal Surgeries: Patient denies: Abdominal Surgery Reproductive Surgeries: Patient denies;: Gynecologic Surgery Orthopedic Surgeries: Surgical HX of;: Orthopedic Surgery (02/08/16 Sched for ORIF Rt Proximal Humerus) - Family History Family History: Reports;: Family Cancer (father), Family Heart Disease (mother) - Social History Smoking Status: Former smoker Frequency of Alcohol Use: None Type of Drug Use: None Physical Examination Vital Signs Temp Pulse Resp BP Pulse Ox 98.1 F 88 20 94/47 93 L 07/25/17 11:28 07/25/17 11:28 07/25/17 11:28 07/25/17 11:28 07/25/17 11:28 Exam: General: Appears well developed, well nourished, intubated on the ventilator in intensive care unit HEENT: Normocephalic, atraumatic Neck: Supple Neck, Midline Trachea Cardiac: Regular rhythm, 2 out of 6 systolic murmur, no gallop, no rub Lungs: Coarse breath sounds per the ventilator Neuro: The patient is intubated but awake and responds to simple commands Abdomen: Soft, hypoactive bowel sounds with some tenderness to palpation which is likely secondary to her recent surgery Skin: The patient has bluish discoloration of her toes left greater than right secondary to ischemia Extremities: No clubbing, cyanosis of the lower extremities as described above Musculoskeletal: No acute abnormality other than the ischemic leg Psychiatric: This cannot really be accurately assessed as the patient is intubated on the ventilator Result/EKG - Labs CBC & BMP: 07/26/17 08:35 07/26/17 04:00 Lab Results: I have reviewed the past 24 hour labs Labs: Laboratory Results - last 24 hr 07/25/17 07/25/17 07/25/17 11:48 11:48 11:48 WBC 27.1 H RBC 3.90 Hgb 12.0 Hct 35.5 L MCV 91.0 MCH 31 MCHC 33.8 RDW 14.6 Plt Count 337 MPV 10.6 Neut % (Auto) 90.4 H Lymph % (Auto) 2.7 L [place] % (Auto) 6.1 Eos % (Auto) 0.0 Baso % (Auto) 0.1 Neut # (Auto) 24.5 H Lymph # (Auto) 0.7 L [place] # (Auto) 1.6 H Eos # (Auto) 0.0 Baso # (Auto) 0.0 Total Counted 100 Immature Gran % 0.7 Nucleated RBC % 0.0 Immature Gran # 0.20 Segmented Neutrophils 88 H Band Neutrophils Lymphocytes 6 L Monocytes 6 Promyelocytes Nucleated RBCs # 0.00 Platelet Estimate Adequate Giant Platelets Few Immature Plt Fraction 0.0 Hypochromasia 1+ Microcytosis Ovalocytes Slight Yessi Cells INR 1.3 PT Patient/Control Mix 14.1 Fibrinogen D-Dimer, Quantitative Circ Anticoag PTT 59.0 H Plt Func Screen - ADP Plt Func Scrn - Epineph Patient Temperature ABG pH ABG pH at Pt Temp ABG pCO2 ABG pCO2 at Pt Temp ABG pO2 ABG pO2 at Pt Temp ABG HCO3 ABG Total CO2 ABG O2 Saturation ABG Base Excess ABG Sodium Hemoglobin Hematocrit Ionized Calcium Sodium 126 L Potassium 7.9 H* Chloride 98 Carbon Dioxide 18 L Anion Gap 17.9 H BUN 79 H Creatinine 4.20 H GFR Calculation 10 BUN/Creatinine Ratio 18.00 Glucose 88 POC Glucose Calculated Osmolality 275.4 Calcium 8.8 Total Bilirubin AST ALT Alkaline Phosphatase Total Protein Albumin Globulin Albumin/Globulin Ratio Urine Color Urine Appearance Urine pH Ur Specific [place] Urine Protein Urine Glucose (UA) Urine Ketones Urine Blood Urine Nitrate Urine Bilirubin Urine Urobilinogen Urine Leukocytes Urine RBC Urine WBC Ur Squamous Epith Cells Ur Culture Indicated? Blood Type Antibody Screen Crossmatch Blood Bank Comment 07/25/17 07/25/17 07/25/17 12:38 13:35 15:25 WBC RBC Hgb Hct MCV MCH MCHC RDW Plt Count 218 D MPV Neut % (Auto) Lymph % (Auto) [place] % (Auto) Eos % (Auto) Baso % (Auto) Neut # (Auto) Lymph # (Auto) [place] # (Auto) Eos # (Auto) Baso # (Auto) Total Counted Immature Gran % Nucleated RBC % Immature Gran # Segmented Neutrophils Band Neutrophils Lymphocytes Monocytes Promyelocytes Nucleated RBCs # Platelet Estimate Giant Platelets Immature Plt Fraction Hypochromasia Microcytosis Ovalocytes [place] Cells INR PT Patient/Control Mix Fibrinogen D-Dimer, Quantitative Circ Anticoag PTT Plt Func Screen - ADP Plt Func Scrn - Epineph Patient Temperature ABG pH ABG pH at Pt Temp ABG pCO2 ABG pCO2 at Pt Temp ABG pO2 ABG pO2 at Pt Temp ABG HCO3 ABG Total CO2 ABG O2 Saturation ABG Base Excess ABG Sodium Hemoglobin Hematocrit Ionized Calcium Sodium Potassium Chloride Carbon Dioxide Anion Gap BUN Creatinine GFR Calculation BUN/Creatinine Ratio Glucose POC Glucose 176 H Calculated Osmolality Calcium Total Bilirubin AST ALT Alkaline Phosphatase Total Protein Albumin Globulin Albumin/Globulin Ratio Urine Color Yellow Urine Appearance Cloudy Urine pH 5.0 Ur Specific [place] 1.011 Urine Protein 30 Urine Glucose (UA) Negative Urine Ketones Negative Urine Blood Moderate Urine Nitrate Negative Urine Bilirubin Negative Urine Urobilinogen < 2.0 H Urine Leukocytes Negative Urine RBC 4 Urine WBC 4 Ur Squamous Epith Cells Occasional Ur Culture Indicated? Not indicated Blood Type Antibody Screen Crossmatch Blood Bank Comment 07/25/17 07/25/17 07/25/17 15:25 19:00 19:00 WBC 20.8 H RBC 2.12 L D Hgb 6.7 L D Hct 19.4 L MCV 91.5 MCH 32 MCHC 34.5 RDW 14.6 Plt Count 241 MPV 10.0 Neut % (Auto) 78.1 H Lymph % (Auto) 11.0 L [place] % (Auto) 9.4 Eos % (Auto) 0.3 Baso % (Auto) 0.1 Neut # (Auto) 16.3 H Lymph # (Auto) 2.3 [place] # (Auto) 2.0 H Eos # (Auto) 0.1 Baso # (Auto) 0.0 Total Counted 100 Immature Gran % 1.1 Nucleated RBC % 0.0 Immature Gran # 0.22 Segmented Neutrophils 83 Band Neutrophils Lymphocytes 10 L Monocytes 7 Promyelocytes Nucleated RBCs # 0.00 Platelet Estimate Adequate Giant Platelets Immature Plt Fraction 0.0 Hypochromasia Microcytosis Ovalocytes [place] Cells INR PT Patient/Control Mix Fibrinogen D-Dimer, Quantitative Circ Anticoag PTT Plt Func Screen - ADP Plt Func Scrn - Epineph Patient Temperature 37 ABG pH 7.283 L ABG pH at Pt Temp 7.283 ABG pCO2 41.9 ABG pCO2 at Pt Temp 41.9 ABG pO2 165.0 H ABG pO2 at Pt Temp 165.0 ABG HCO3 19.1 L ABG Total CO2 18.4 L ABG O2 Saturation 98.7 ABG Base Excess -6.5 L ABG Sodium 129 L Hemoglobin 9.3 L Hematocrit 28.9 L Ionized Calcium 1.37 Sodium 138 Potassium 6.4 H* 6.0 H* D Chloride 106 Carbon Dioxide 23 Anion Gap 15.0 BUN 74 H Creatinine 3.60 H GFR Calculation 12 BUN/Creatinine Ratio 20.00 Glucose 110 H 140 H POC Glucose Calculated Osmolality 298.7 Calcium 10.1 Total Bilirubin AST ALT Alkaline Phosphatase Total Protein Albumin Globulin Albumin/Globulin Ratio Urine Color Urine Appearance Urine pH Ur Specific [place] Urine Protein Urine Glucose (UA) Urine Ketones Urine Blood Urine Nitrate Urine Bilirubin Urine Urobilinogen Urine Leukocytes Urine RBC Urine WBC Ur Squamous Epith Cells Ur Culture Indicated? Blood Type Antibody Screen Crossmatch Blood Bank Comment 07/25/17 07/25/17 07/25/17 19:00 19:00 19:20 WBC RBC Hgb Hct MCV MCH MCHC RDW Plt Count MPV Neut % (Auto) Lymph % (Auto) [place] % (Auto) Eos % (Auto) Baso % (Auto) Neut # (Auto) Lymph # (Auto) [place] # (Auto) Eos # (Auto) Baso # (Auto) Total Counted Immature Gran % Nucleated RBC % Immature Gran # Segmented Neutrophils Band Neutrophils Lymphocytes Monocytes Promyelocytes Nucleated RBCs # Platelet Estimate Giant Platelets Immature Plt Fraction Hypochromasia Microcytosis Ovalocytes [place] Cells INR PT Patient/Control Mix Fibrinogen D-Dimer, Quantitative Circ Anticoag PTT Plt Func Screen - ADP Plt Func Scrn - Epineph Patient Temperature ABG pH 7.568 H ABG pH at Pt Temp ABG pCO2 46.0 ABG pCO2 at Pt Temp ABG pO2 351.0 H ABG pO2 at Pt Temp ABG HCO3 41.7 H ABG Total CO2 40.4 H ABG O2 Saturation 99.9 ABG Base Excess 17.7 H ABG Sodium Hemoglobin Hematocrit Ionized Calcium Sodium Potassium Chloride Carbon Dioxide Anion Gap BUN Creatinine GFR Calculation BUN/Creatinine Ratio Glucose POC Glucose Calculated Osmolality Calcium Total Bilirubin AST ALT Alkaline Phosphatase Total Protein Albumin Globulin Albumin/Globulin Ratio Urine Color Urine Appearance Urine pH Ur Specific [place] Urine Protein Urine Glucose (UA) Urine Ketones Urine Blood Urine Nitrate Urine Bilirubin Urine Urobilinogen Urine Leukocytes Urine RBC Urine WBC Ur Squamous Epith Cells Ur Culture Indicated? Blood Type A NEGATIVE A NEGATIVE Antibody Screen Negative Crossmatch See Detail Blood Bank Comment 07/25/17 07/25/17 07/25/17 21:03 21:03 21:04 WBC RBC Hgb 7.2 L Hct 20.7 L MCV MCH MCHC RDW Plt Count 233 MPV Neut % (Auto) Lymph % (Auto) [place] % (Auto) Eos % (Auto) Baso % (Auto) Neut # (Auto) Lymph # (Auto) [place] # (Auto) Eos # (Auto) Baso # (Auto) Total Counted Immature Gran % Nucleated RBC % Immature Gran # Segmented Neutrophils Band Neutrophils Lymphocytes Monocytes Promyelocytes Nucleated RBCs # Platelet Estimate Giant Platelets Immature Plt Fraction Hypochromasia Microcytosis Ovalocytes Yessi Cells INR 3.2 PT Patient/Control Mix 33.6 D Fibrinogen 184 L D-Dimer, Quantitative 2.5 Circ Anticoag PTT 82.5 H D Plt Func Screen - ADP 71 Plt Func Scrn - Epineph 154 H Patient Temperature ABG pH ABG pH at Pt Temp ABG pCO2 ABG pCO2 at Pt Temp ABG pO2 ABG pO2 at Pt Temp ABG HCO3 ABG Total CO2 ABG O2 Saturation ABG Base Excess ABG Sodium Hemoglobin Hematocrit Ionized Calcium Sodium Potassium Chloride Carbon Dioxide Anion Gap BUN Creatinine GFR Calculation BUN/Creatinine Ratio Glucose POC Glucose Calculated Osmolality Calcium Total Bilirubin AST ALT Alkaline Phosphatase Total Protein Albumin Globulin Albumin/Globulin Ratio Urine Color Urine Appearance Urine pH Ur Specific [place] Urine Protein Urine Glucose (UA) Urine Ketones Urine Blood Urine Nitrate Urine Bilirubin Urine Urobilinogen Urine Leukocytes Urine RBC Urine WBC Ur Squamous Epith Cells Ur Culture Indicated? Blood Type Antibody Screen Crossmatch Blood Bank Comment 07/25/17 07/25/17 07/25/17 21:04 21:12 21:24 WBC RBC Hgb Hct MCV MCH MCHC RDW Plt Count MPV Neut % (Auto) Lymph % (Auto) [place] % (Auto) Eos % (Auto) Baso % (Auto) Neut # (Auto) Lymph # (Auto) [place] # (Auto) Eos # (Auto) Baso # (Auto) Total Counted Immature Gran % Nucleated RBC % Immature Gran # Segmented Neutrophils Band Neutrophils Lymphocytes Monocytes Promyelocytes Nucleated RBCs # Platelet Estimate Giant Platelets Immature Plt Fraction Hypochromasia Microcytosis Ovalocytes Yessi Cells INR PT Patient/Control Mix Fibrinogen D-Dimer, Quantitative Circ Anticoag PTT Plt Func Screen - ADP Plt Func Scrn - Epineph Patient Temperature ABG pH 7.318 L ABG pH at Pt Temp ABG pCO2 39.4 ABG pCO2 at Pt Temp ABG pO2 233.0 H ABG pO2 at Pt Temp ABG HCO3 19.9 L ABG Total CO2 19.0 L ABG O2 Saturation 99.4 ABG Base Excess -5.5 L ABG Sodium Hemoglobin Hematocrit Ionized Calcium Sodium 143 Potassium 6.2 H* Chloride 109 H Carbon Dioxide 24 Anion Gap 16.2 H BUN 63 H D Creatinine 3.50 H GFR Calculation 13 BUN/Creatinine Ratio 18.00 Glucose 159 H POC Glucose 122 H Calculated Osmolality 305.0 H Calcium 8.6 Total Bilirubin 0.40 AST 24 ALT 13 Alkaline Phosphatase 51 Total Protein 3.8 L Albumin 1.9 L Globulin 1.9 L Albumin/Globulin Ratio 1.0 L Urine Color Urine Appearance Urine pH Ur Specific [place] Urine Protein Urine Glucose (UA) Urine Ketones Urine Blood Urine Nitrate Urine Bilirubin Urine Urobilinogen Urine Leukocytes Urine RBC Urine WBC Ur Squamous Epith Cells Ur Culture Indicated? Blood Type Antibody Screen Crossmatch Blood Bank Comment 07/25/17 07/25/17 07/25/17 23:04 23:07 23:56 WBC RBC Hgb Hct MCV MCH MCHC RDW Plt Count MPV Neut % (Auto) Lymph % (Auto) [place] % (Auto) Eos % (Auto) Baso % (Auto) Neut # (Auto) Lymph # (Auto) [place] # (Auto) Eos # (Auto) Baso # (Auto) Total Counted Immature Gran % Nucleated RBC % Immature Gran # Segmented Neutrophils Band Neutrophils Lymphocytes Monocytes Promyelocytes Nucleated RBCs # Platelet Estimate Giant Platelets Immature Plt Fraction Hypochromasia Microcytosis Ovalocytes [place] Cells INR PT Patient/Control Mix Fibrinogen D-Dimer, Quantitative Circ Anticoag PTT Plt Func Screen - ADP Plt Func Scrn - Epineph Patient Temperature ABG pH ABG pH at Pt Temp ABG pCO2 ABG pCO2 at Pt Temp ABG pO2 ABG pO2 at Pt Temp ABG HCO3 ABG Total CO2 ABG O2 Saturation ABG Base Excess ABG Sodium Hemoglobin Hematocrit Ionized Calcium Sodium Potassium Chloride Carbon Dioxide Anion Gap BUN Creatinine GFR Calculation BUN/Creatinine Ratio Glucose POC Glucose 25 L* 164 H Calculated Osmolality Calcium Total Bilirubin AST ALT Alkaline Phosphatase Total Protein Albumin Globulin Albumin/Globulin Ratio Urine Color Urine Appearance Urine pH Ur Specific [place] Urine Protein Urine Glucose (UA) Urine Ketones Urine Blood Urine Nitrate Urine Bilirubin Urine Urobilinogen Urine Leukocytes Urine RBC Urine WBC Ur Squamous Epith Cells Ur Culture Indicated? Blood Type Cancelled Antibody Screen Cancelled Crossmatch See Detail Blood Bank Comment Cancelled 0907/25/17 07/26/17 Unknown Unknown 03:22 WBC RBC Hgb 9.5 L D Hct 27.3 L MCV MCH MCHC RDW Plt Count MPV Neut % (Auto) Lymph % (Auto) [place] % (Auto) Eos % (Auto) Baso % (Auto) Neut # (Auto) Lymph # (Auto) [place] # (Auto) Eos # (Auto) Baso # (Auto) Total Counted Immature Gran % Nucleated RBC % Immature Gran # Segmented Neutrophils Band Neutrophils Lymphocytes Monocytes Promyelocytes Nucleated RBCs # Platelet Estimate Giant Platelets Immature Plt Fraction Hypochromasia Microcytosis Ovalocytes [place] Cells INR PT Patient/Control Mix Fibrinogen D-Dimer, Quantitative Circ Anticoag PTT Plt Func Screen - ADP Plt Func Scrn - Epineph Patient Temperature ABG pH 7.327 L ABG pH at Pt Temp ABG pCO2 48.3 H ABG pCO2 at Pt Temp ABG pO2 25.6 L* ABG pO2 at Pt Temp ABG HCO3 23.0 ABG Total CO2 24.1 ABG O2 Saturation 40.2 L ABG Base Excess -0.9 ABG Sodium Hemoglobin Hematocrit Ionized Calcium Sodium Potassium Chloride Carbon Dioxide Anion Gap BUN Creatinine GFR Calculation BUN/Creatinine Ratio Glucose POC Glucose 106 Calculated Osmolality Calcium Total Bilirubin AST ALT Alkaline Phosphatase Total Protein Albumin Globulin Albumin/Globulin Ratio Urine Color Urine Appearance Urine pH Ur Specific [place] Urine Protein Urine Glucose (UA) Urine Ketones Urine Blood Urine Nitrate Urine Bilirubin Urine Urobilinogen Urine Leukocytes Urine RBC Urine WBC Ur Squamous Epith Cells Ur Culture Indicated? Blood Type Antibody Screen Crossmatch Blood Bank Comment 07/26/17 07/26/17 07/26/17 04:00 04:00 04:00 WBC 15.2 H RBC 3.70 L D Hgb 10.9 L Hct 31.1 L MCV 84.1 L MCH 30 MCHC 35.0 RDW 18.4 H Plt Count 167 D MPV 10.5 Neut % (Auto) 91.7 H Lymph % (Auto) 3.2 L [place] % (Auto) 4.5 Eos % (Auto) 0.0 Baso % (Auto) 0.1 Neut # (Auto) 14.0 H Lymph # (Auto) 0.5 L [place] # (Auto) 0.7 Eos # (Auto) 0.0 Baso # (Auto) 0.0 Total Counted 100 Immature Gran % 0.5 Nucleated RBC % 0.0 Immature Gran # 0.07 Segmented Neutrophils 80 Band Neutrophils 8 Lymphocytes 7 L Monocytes 4 Promyelocytes 1 Nucleated RBCs # 0.00 Platelet Estimate Adequate Giant Platelets Immature Plt Fraction 0.0 Hypochromasia 1+ Microcytosis 1+ Ovalocytes [place] Cells Slight INR PT Patient/Control Mix Fibrinogen D-Dimer, Quantitative Circ Anticoag PTT Plt Func Screen - ADP Plt Func Scrn - Epineph Patient Temperature ABG pH 7.388 ABG pH at Pt Temp ABG pCO2 35.4 ABG pCO2 at Pt Temp ABG pO2 99.2 H ABG pO2 at Pt Temp ABG HCO3 20.9 ABG Total CO2 21.9 L ABG O2 Saturation 97.2 ABG Base Excess -3.6 L ABG Sodium Hemoglobin Hematocrit Ionized Calcium Sodium 145 Potassium 5.6 H Chloride 110 H Carbon Dioxide 22 Anion Gap 18.6 H BUN 65 H Creatinine 3.80 H GFR Calculation 11 BUN/Creatinine Ratio 17.00 Glucose 121 H POC Glucose Calculated Osmolality 307.7 H Calcium 8.2 L Total Bilirubin AST ALT Alkaline Phosphatase Total Protein Albumin Globulin Albumin/Globulin Ratio Urine Color Urine Appearance Urine pH Ur Specific [place] Urine Protein Urine Glucose (UA) Urine Ketones Urine Blood Urine Nitrate Urine Bilirubin Urine Urobilinogen Urine Leukocytes Urine RBC Urine WBC Ur Squamous Epith Cells Ur Culture Indicated? Blood Type Antibody Screen Crossmatch Blood Bank Comment 07/26/17 07/26/17 07:08 Unknown WBC RBC Hgb Hct MCV MCH MCHC RDW Plt Count MPV Neut % (Auto) Lymph % (Auto) [place] % (Auto) Eos % (Auto) Baso % (Auto) Neut # (Auto) Lymph # (Auto) [place] # (Auto) Eos # (Auto) Baso # (Auto) Total Counted Immature Gran % Nucleated RBC % Immature Gran # Segmented Neutrophils Band Neutrophils Lymphocytes Monocytes Promyelocytes Nucleated RBCs # Platelet Estimate Giant Platelets Immature Plt Fraction Hypochromasia Microcytosis Ovalocytes [place] Cells INR 1.2 PT Patient/Control Mix 12.8 D Fibrinogen D-Dimer, Quantitative Circ Anticoag PTT 29.9 D Plt Func Screen - ADP Plt Func Scrn - Epineph Patient Temperature ABG pH ABG pH at Pt Temp ABG pCO2 ABG pCO2 at Pt Temp ABG pO2 ABG pO2 at Pt Temp ABG HCO3 ABG Total CO2 ABG O2 Saturation ABG Base Excess ABG Sodium Hemoglobin Hematocrit Ionized Calcium Sodium Potassium Chloride Carbon Dioxide Anion Gap BUN Creatinine GFR Calculation BUN/Creatinine Ratio Glucose POC Glucose 106 Calculated Osmolality Calcium Total Bilirubin AST ALT Alkaline Phosphatase Total Protein Albumin Globulin Albumin/Globulin Ratio Urine Color Urine Appearance Urine pH Ur Specific [place] Urine Protein Urine Glucose (UA) Urine Ketones Urine Blood Urine Nitrate Urine Bilirubin Urine Urobilinogen Urine Leukocytes Urine RBC Urine WBC Ur Squamous Epith Cells Ur Culture Indicated? Blood Type Antibody Screen Crossmatch Blood Bank Comment - EKG EKG results: interpreted by me I, Raffaele Brown MD, personally performed the services described in this documentation, ascribed by Ivett Luz NP in my presence, and it is both accurate and complete .
[2017-07-26] MEDS ORDERED: ENOXAPARIN 30 MG/0.3 ML SYRINGE SUBCUT SCH (12:00)
--- NOTE | 2017-07-26 12:23 | Nephrology Consult Note ---
History of Present Illness Chief complaint: ARF History of present illness: Ms. Antonio is a 82 year old female admitted with ischemia of her left leg. She underwent stenting of the left external iliac. She required reexploration for retroperitoneal hematoma. She had acute renal failure with hyperkalemia at the time of admission. She was taking potassium, meloxicam, and benazepril prior to admission. These have been discontinued. She is currently on the ventilator and requiring pressor support. Hyperkalemia has improved Home Medications Medication Instructions Recorded Confirmed Type Atorvastatin [Lipitor] 20 mg PO QAM 01/15/16 07/25/17 History Benazepril HCl 20 mg PO QAM #0 01/15/16 07/25/17 History Budesonide/Formoterol 160-4.5 1 puff INH DAILY 01/15/16 07/25/17 History [Symbicort 160-4.5] Dabigatran [Pradaxa] 150 mg PO BID 01/15/16 07/25/17 History Furosemide 40 mg PO QAM 01/15/16 07/25/17 History Metoprolol Tartrate 1 tablet PO BID 01/15/16 07/25/17 History Potassium Chloride 20 meq PO QAM #0 01/15/16 07/25/17 History Albuterol Sulfate [Proair HFA] 2 puff INH Q4H PRN 07/25/17 07/25/17 History Carvedilol [Carvedilol] 3.125 mg PO BID 07/25/17 07/25/17 History Cholecalciferol [Vitamin D3] 2,000 unit PO QAM 07/25/17 07/25/17 History Clopidogrel Bisulfate [Clopidogrel] 75 mg PO QAM 07/25/17 07/25/17 History Meloxicam [Mobic] 7.5 mg PO QAM 07/25/17 07/25/17 History Montelukast Tab [Singulair Tab] 10 mg PO QAM 07/25/17 07/25/17 History Rosuvastatin Calcium [Crestor] 40 mg PO QAM 07/25/17 07/25/17 History Allergies Allergy/AdvReac Type Severity Reaction Status Date / Time ampicillin Allergy Severe RASH Verified 02/08/16 06:33 Medical,Surgical,& Family Hx - Medical History Cardio: History of: Aneurysm, Hypertension, Pacemaker (DR RAMILA BAUTISTAT GETTING RECORDS) HEENT: History of: Eye Problem (CATARACTS) Respiratory: History of: COPD, Obstructive Sleep Apnea (CPAP) Musculoskeletal: History of: Musculoskeletal Problems (FX RIGHT PROXIMAL HUMERUS ) - Surgical History Neurologic Surgeries: Patient denies: Neurologic Surgery HEENT Surgeries: Surgical HX of: Eye Surgery (CATARACTS) Abdominal Surgeries: Patient denies: Abdominal Surgery Reproductive Surgeries: Patient denies;: Gynecologic Surgery Orthopedic Surgeries: Surgical HX of;: Orthopedic Surgery (02/08/16 Sched for ORIF Rt Proximal Humerus) - Family History Family History: Reports;: Family Cancer (father), Family Heart Disease (mother) - Social History Smoking Status: Former smoker Frequency of Alcohol Use: None Type of Drug Use: None Review of Systems ROS unobtainable: due to endotracheal tube Exam - Vital Signs Vital signs: Period Temp Pulse Resp BP Sys/Acosta Pulse Ox Last 24 Hr 93.9 F-99.1 F 92-121 9-24 57-162/37-101 80-100 Exam: Gen.: On ventilator. She is awake and follows simple commands ENT: Pupils equal round reactive to light. Neck: Supple. No JVD or bruit. Cardiovascular: Regular rate and rhythm. No murmur rub or gallop Lungs: Clear Abdomen: Soft. Nontender. Positive bowel sounds. No organomegaly Extremities: 1+ edema on the left. Left foot is cool and mottled Results - Labs CBC & BMP: 07/26/17 08:35 07/26/17 04:00 Assessment and Plan (1) Acute renal failure Status: Acute Assessment and plan: 82-year-old woman with: * ARF. Secondary to hypotension and possible rhabdomyolysis associated with left leg ischemia. She is requiring pressors. SEBASTIAN inhibitor discontinued. Continue supportive care. Ultrasound shows no obstruction. There is increased echogenicity consistent with mild CRF * Hyperkalemia. Improved * Left leg ischemia. Status post iliac stent * Ventilatory failure. Underlying COPD * Hypotension Current Visit: Yes (2) Hyperkalemia Status: Acute Current Visit: Yes (3) Hypotension Status: Acute Current Visit: Yes (4) Ischemia of left lower extremity Status: Acute Current Visit: Yes (5) Postoperative respiratory failure Status: Acute Current Visit: Yes (6) Retroperitoneal hematoma Status: Acute Current Visit: Yes (7) COPD (chronic obstructive pulmonary disease) Status: Acute Current Visit: No
[2017-07-26] MEDS ORDERED: SODIUM CHLORIDE 0.9% 1,000 ML IV ONE (12:30)
[2017-07-26] MEDS: SODIUM CHLORIDE 0.9% 1,000 ML IV SCH ×2 (13:30→21:22)
[2017-07-26] MEDS: ALUMINUM/MAGNES/SIMETH MAX STR 30 ML UDCUP NG SCH ×3 (14:49→22:38)
[2017-07-26] MEDS: PANTOPRAZOLE 40 MG VIAL IV SCH (14:50)
[2017-07-26] MEDS ORDERED: ALBUMIN 25% 25 GM in PREMIX 1 EACH IV ONE (15:49)
--- NOTE | 2017-07-26 15:52 | Event Note ---
Ms. Nuñez has continued episodes of hypotension despite now dopamine and Ahmet- Synephrine. I am going to recheck her hematocrit we will try albumin 25 g to see if we can improve her perfusion her urine output has dropped CVP is 13 but we have pressures down below 100 again heart rate remains in the 110s-120 range. She has significant ischemia of both feet more so on the left than on the right she does not show evidence of intra-abdominal bleeding the drains are not putting out any significant amounts of blood. I have significant concerns of excessive fluid replacement will result in congestive heart failure. We also note some decreasing oxygen saturations.
--- NOTE | 2017-07-26 16:06 | Interventional Radiology Rpt ---
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 History of prior abdominal aortic aneurysm repair. Patient on Plavix. INTRAOPERATIVE STENT PLACEMENT LEFT EXTERNAL ILIAC ARTERY, LEFT PELVIC AND LOWER EXTREMITY ARTERIOGRAM Description: Asked by Dr. Bustos to evaluate left external iliac artery for stent placement in the OR. Upon my arrival, the patient was already under general endotracheal anesthesia and the left groin exposed with a catheter advanced by Dr. Morataya into the left iliac outflow limb of a abdominal aortic stent graft. Arteriogram was performed confirming patency of the left iliac outflow limb, but severe eccentric calcified atheromatous disease of the unstented portion of the left external iliac artery. The catheter was removed over wire and I advanced an 8 x 80 Fluency Plus stent graft into the left external iliac artery. The stent graft was deployed and angioplastied in place with an 8 x 80 mm Conquest balloon. Post stent arteriogram was then performed showing improved flow through the stent and no evidence of extravasation. At this point, Dr. Dhaliwal continued his case and we left without further intervention. Contrast: Omnipaque 240, 75 cc. Fluoroscopy: 2 minutes 6 seconds, 13 captured images. Impression: Placement of left external iliac stent graft, dilated 8 mm diameter. PROCEDURE INTERPRETED AT [facility] DEPARTMENT OF RADIOLOGY Final Report Signed by: Casa Mtz M.D.
[2017-07-26] MEDS: ALBUMIN 25% 25 GM in PREMIX 1 EACH IV SCH (16:14)
--- NOTE | 2017-07-26 17:26 | Hematology Consult ---
History of Present Illness - Consult Narrative History of present illness: - Formal consult to follow in the morning. - I recieved a consult for a platelet count of 167 which is normal. I spoke with nurse via phone when I received the consult, and he wasn't sure what the real reason for the consult to Hematology was for. I reviewed the case and I assume the consult was for previous elevated coags and PFA - Pt was on Pradaxa, ASA, and Plavix on admission - Pradaxa binding agent was given at admission - Coags were normal today. - I will recheck in the morning to be certain there is nothing that I can be of assistance with. Please call me if there is a Hematology question that I am missing. CC: Demario Bustos MD - Home Medications and Allergies Home Medications: Home Medications Medication Instructions Recorded Confirmed Type Atorvastatin [Lipitor] 20 mg PO QAM 01/15/16 07/25/17 History Benazepril HCl 20 mg PO QAM #0 01/15/16 07/25/17 History Budesonide/Formoterol 160-4.5 1 puff INH DAILY 01/15/16 07/25/17 History [Symbicort 160-4.5] Dabigatran [Pradaxa] 150 mg PO BID 01/15/16 07/25/17 History Furosemide 40 mg PO QAM 01/15/16 07/25/17 History Metoprolol Tartrate 1 tablet PO BID 01/15/16 07/25/17 History Potassium Chloride 20 meq PO QAM #0 01/15/16 07/25/17 History Albuterol Sulfate [Proair HFA] 2 puff INH Q4H PRN 07/25/17 07/25/17 History Carvedilol [Carvedilol] 3.125 mg PO BID 07/25/17 07/25/17 History Cholecalciferol [Vitamin D3] 2,000 unit PO QAM 07/25/17 07/25/17 History Clopidogrel Bisulfate [Clopidogrel] 75 mg PO QAM 07/25/17 07/25/17 History Meloxicam [Mobic] 7.5 mg PO QAM 07/25/17 07/25/17 History Montelukast Tab [Singulair Tab] 10 mg PO QAM 07/25/17 07/25/17 History Rosuvastatin Calcium [Crestor] 40 mg PO QAM 07/25/17 07/25/17 History Allergies/Adverse Reactions: Allergies Allergy/AdvReac Type Severity Reaction Status Date / Time ampicillin Allergy Severe RASH Verified 02/08/16 06:33 Medical,Surgical,& Family Hx - Medical History Cardio: History of: Aneurysm, Hypertension, Pacemaker (DR MCGRATH RELIGIOUS GETTING RECORDS) HEENT: History of: Eye Problem (CATARACTS) Respiratory: History of: COPD, Obstructive Sleep Apnea (CPAP) Musculoskeletal: History of: Musculoskeletal Problems (FX RIGHT PROXIMAL HUMERUS ) - Surgical History Neurologic Surgeries: Patient denies: Neurologic Surgery HEENT Surgeries: Surgical HX of: Eye Surgery (CATARACTS) Abdominal Surgeries: Patient denies: Abdominal Surgery Reproductive Surgeries: Patient denies;: Gynecologic Surgery Orthopedic Surgeries: Surgical HX of;: Orthopedic Surgery (02/08/16 Sched for ORIF Rt Proximal Humerus) - Family History Family History: Reports;: Family Cancer (father), Family Heart Disease (mother) - Social History Smoking Status: Former smoker Frequency of Alcohol Use: None Type of Drug Use: None Exam - Constitutional Vitals: Period Temp Pulse Resp BP Sys/Acosta Pulse Ox Last 24 Hr 93.9 F-99.5 F 94-123 9-28 57-151/37-101 80-100 Results - Labs CBC & BMP: 07/26/17 16:06 07/26/17 04:00
[2017-07-26 19:08] LABS: ABG Base Excess -9.4 MMOL/L (-2.5-2.5); ABG HCO3 16.8 MMOL/L (20-26); ABG Oxygen Saturation 96.4 % (95-100); ABG PCO2 30.7 MM HG (35-48); ABG PH 7.319 (7.35-7.45); ABG PO2 92.7 MM HG (80-95); ABG TCO2 14.8 MMOL/L (23-27)
[2017-07-26] MEDS ORDERED: DOPamine 800 MG/250 ML PREMIX IV ONE (19:18)
[2017-07-26] MEDS ORDERED: DOPamine 800 MG/250 ML PREMIX IV SCH (19:30)
[2017-07-26] MEDS ORDERED: NOREPINEPHRINE 4 MG/4 ML VIAL IV ONE (19:54)
[2017-07-26] MEDS: NOREPINEPHRINE 8 MG in SODIUM CHLORIDE 0.9% 242 ML IV SCH ×2 (20:00→23:21)
--- NOTE | 2017-07-26 20:02 | Event Note ---
Called to see this patient because of fast heart rate. person the patient earlier today. Apparently follows her as an outpatient. She has a history of atrial fibrillation. Anyway the patient presented with an acute ischemic left leg Dr. Bustos carried out a left femoral endarterectomy and left external stent. Iliac apparently she developed retroperitoneal bleed. She had a markedly depressed H&H. She received blood and fresh frozen plasma. Her issues have been hypotensive. She has been on dopamine and Ahmet-Synephrine now and her heart rates are slowly increased. The last ECG on handout was just a little earlier this evening her heart rate 113 was sinus rhythm. Her heart rates continue to increase. I will stop her dopamine given that she is hypotensive placed on Levophed. We may have to start amiodarone and try to cardiovert the patient if it appears that she is in atrial fibrillation. The patient fortunately is awake but we may have to sedate her.
[2017-07-26] MEDS ORDERED: AMIODARONE 150 MG/3 ML VIAL ONE ×3 (20:03→20:55)
[2017-07-26] MEDS ORDERED: DEXTROSE 50% 25 GM/50 ML SYRINGE IV ONE (20:27)
[2017-07-26] MEDS ORDERED: DEXTRAN-40 10% /NS 500 ML IV SCH (20:30)
[2017-07-26] MEDS ORDERED: DEXTROSE 50% 25 GM/50 ML SYRINGE IV PRN (20:30)
[2017-07-26] MEDS ORDERED: AMIODARONE INJ 450 MG in DEXTROSE 5% 241 ML IV SCH (20:30)
--- NOTE | 2017-07-26 20:32 | Event Note ---
Discussed with nursing service and came back and assess the patient with nursing service here. Appreciate thoughts with Dr. De La Paz and we do seem to be doing better with Levophed and amiodarone with heart rate down a blood pressure up although she is on maximum doses of pseudoephedrine and Levophed. Again there does not appear to be any ongoing bleeding she continues to have ischemia of both feet that I think now is much complication of the pressor agents and anything else she is becoming slightly acidotic she is making no urine. CVP has risen to 15. Hematocrit this afternoon was 28 and with blood pressure down I will go ahead and give 2 more units of packed red blood cells will start LMD 40. While there is no evidence of infection think it reasonable to add Cipro to try to cover the lungs which on this morning's chest x-ray looked a bit more wet. At this point I believe we are providing as much coverage and support as we can. Discussed with her son at least twice today and notes that he is not here this evening. At this point in time I have not discussed resuscitation status with the son I do not think that that is an imminent problem and I will plan to discuss it with him in the morning
[2017-07-26] MEDS ORDERED: CIPROFLOXACIN INJ 400 MG in PREMIX 1 EACH IV SCH (21:00)
[2017-07-26] MEDS: PHENYLEPHRINE INJ 160 MG in SODIUM CHLORIDE 0.9% 234 ML IV SCH (21:45)
[2017-07-26] MEDS: SODIUM BICARB INJ 100 MEQ in DEXTROSE 5% 1,000 ML IV SCH (21:52)
[2017-07-27] MEDS: ALBUTEROL/IPRATROPIUM 3 ML NEB RESP TX SCH ×3 (00:05→07:40)
[2017-07-27] MEDS: ALBUMIN 25% 25 GM in PREMIX 1 EACH IV SCH (00:20)
[2017-07-27] MEDS ORDERED: SODIUM CHLORIDE 0.9% 1,000 ML IV ONE (00:30)
[2017-07-27] MEDS: HYDROmorphone 2 MG/1 ML VIAL IV PRN ×2 (00:45→08:24)
[2017-07-27] MEDS: ALUMINUM/MAGNES/SIMETH MAX STR 30 ML UDCUP NG SCH ×3 (02:02→10:08)
[2017-07-27 02:34] LABS: ABG Base Excess -12.2 MMOL/L (-2.5-2.5); ABG HCO3 14.8 MMOL/L (20-26); ABG Oxygen Saturation 93.3 % (95-100); ABG PCO2 44.4 MM HG (35-48); ABG PO2 81.9 MM HG (80-95); ABG TCO2 15.3 MMOL/L (23-27)
[2017-07-27] MEDS: NOREPINEPHRINE 8 MG in SODIUM CHLORIDE 0.9% 242 ML IV SCH ×2 (02:36→06:38)
[2017-07-27 02:37] LABS: ABG PH 7.165 (7.35-7.45)
[2017-07-27 02:41] LABS: Basophils % 0.2 % (0.0-0.8); Hematocrit 27.4 VOL% (35.7-47.0); Immature Granulocytes % 1.6 %; Immature Granulocytes Absolute 0.21 #; Lymphocytes # 0.6 10*3/uL (1.4-4.0); Lymphocytes % 4.2 % (21.3-54.2); Mean Corpuscular HGB Conc 32.8 GM/DL (32-36); Mean Corpuscular Hemoglobin 29 PG (27-34); Mean Corpuscular Volume 87.3 FL (87-102); Mean Platelet Volume 11.5 FL (9.6-12.0); Monocytes # 0.7 10*3/uL (0.11-0.8); Monocytes % 5.3 % (1.7-12.7); NRBC # 0.14 10*3/uL; Neutrophils # 11.7 10*3/uL (1.4-7.4); Neutrophils % 88.7 % (38.7-73.9); Platelet Count 104 T/CUMM (130-400); Red Blood Count 3.14 MC/CUMM (3.8-5.5); Red Cell Distribution Width 18.3 % (9.3-17.3); White Blood Count 13.2 T/CUMM (4-12)
[2017-07-27 03:06] LABS: Calcium 6.6 MG/DL (8.5-10.1); Magnesium 2.1 MG/DL (1.8-2.4); Osmolality,Calculated 307.8 MOS/KG (273-304)
[2017-07-27] MEDS ORDERED: SODIUM BICARBONATE 50 MEQ/50 ML SYRINGE IV ONE ×3 (03:24→07:24)
[2017-07-27] MEDS ORDERED: AMIODARONE 150 MG/3 ML VIAL ONE (03:25)
[2017-07-27] MEDS ORDERED: AMIODARONE INJ 150 MG in DEXTROSE 5% 100 ML IV ONE (03:36)
[2017-07-27] MEDS ORDERED: SODIUM POLYSTYRENE SULFATE 15 GM/60 ML BOTTLE PO ONE (03:45)
[2017-07-27 03:55] LABS: Atypical Lymphocytes Few; Band Neutrophils 20 % (0-10); Lymphocytes 10 % (20-55); Metamyelocytes 23 %; Myelocytes 4 %; Nucleated Red Blood Cells 10 (0-5); Platelet Estimate Decreased; Segmented Neutrophils 38 % (50-85); Total Cells Counted 100
[2017-07-27 03:56] LABS: Anisocytosis 1+; Macrocytosis 1+; Ovalocytes 1+
[2017-07-27] MEDS: PHENYLEPHRINE INJ 80 MG in SODIUM CHLORIDE 0.9% 242 ML IV SCH (04:05)
[2017-07-27 04:39] LABS: INR > 20.0; PT Patient Result > 200.0 SECS; Partial Thromboplastin Time 172.5 SECS (0-40)
[2017-07-27] MEDS: PHENYLEPHRINE INJ 160 MG in SODIUM CHLORIDE 0.9% 234 ML IV SCH (05:31)
[2017-07-27 05:47] LABS: ABG HCO3 18.1 MMOL/L (20-26); ABG Oxygen Saturation 93.3 % (95-100); ABG PCO2 39.6 MM HG (35-48); ABG PH 7.279 (7.35-7.45); ABG TCO2 19.4 MMOL/L (23-27)
[2017-07-27] MEDS ORDERED: NOREPINEPHRINE 16 MG in SODIUM CHLORIDE 0.9% 234 ML IV SCH (06:00)
[2017-07-27] MEDS ORDERED: NOREPINEPHRINE 4 MG/4 ML VIAL IV ONE (06:10)
--- NOTE | 2017-07-27 06:22 | Event Note ---
Ms. Nuñez showed markedly worsening coagulopathy pathic parameters this morning with a markedly elevated PT INR and PTT she is not on any anticoagulant therapy at this point time he remains hypotensive tachycardic a little bolus of amiodarone is improved that again H&H is down a bit after 2 units of blood I have ordered a CT scan which I reviewed and does not reveal any ongoing bleeding it does show pneumatosis involving wall of the stomach as well as some portal and splenic air is also suggestion of colitis but there does not appear to be any clear evidence of major bowel ischemia. Stomach was distended will get the NG tube adjusted to decrease the gastric distention as well. Pain and creatinine are slowly rising and she remains an area chest x-ray shows some increasing interstitial fluid but no significant effusions pneumothorax or other major intrathoracic abnormality. I do not believe her blood pressure will allow any type of acute dialysis and I am not convinced that that would be beneficial. Her legs and feet appear to be about the same that they have been with a slow progressive ischemia of both feet more on the left than on the right. The CT does suggest hematoma in the left thigh but this is not unexpected and does not appear to be a significant issue for the overall illness
[2017-07-27] MEDS ORDERED: AMIODARONE INJ 450 MG in DEXTROSE 5% 241 ML IV SCH (06:30)
--- NOTE | 2017-07-27 06:45 | Pulmonology Progress Note ---
Pulmonary - PN: Subj Interval history: This 82-year-old white female has peripheral vascular disease with ischemic left leg. She has had surgery. She had a retroperitoneal hematoma drained. She has been on the ventilator with respiratory failure. Her chest x-ray is relatively clear. She has a severe acidosis and acute renal failure. She remains hypotensive. Exam (Progress Note) - Constitutional Vitals: Period Temp Pulse Resp BP Sys/Acosta Pulse Ox Last 24 Hr 97.9 F-99.5 F 84-188 9-35 57-125/30-48 91-99 Exam: Systolic blood pressure 75 and she is on pressures. Patient is responsive and nods to questions. Pulse is 140. Pupils react to light. Orotracheal tube in place. Neck is supple. Chest sounds clear equal breath sounds. Heart rapid rate no murmurs. Abdomen soft. He has some direct tenderness. Decreased bowel sounds. Extremities no clubbing cyanosis edema. Left lower extremity is mottled from about the upper calf down. Results - Labs CBC & BMP: 07/27/17 02:20 07/27/17 02:20 Lab Results: I have reviewed the past 24 hour labs - Diagnostic Findings Procedure: Chest x-ray: image reviewed by me (Essentially clear. ET tube in good position. Pacemaker in place.) Assessment and Plan (1) Acute renal failure Status: Acute Assessment and plan: Creatinine elevated to 3.8 with hyperkalemia. Treating with hydration. Need renal to see. She does have adequate urine output. 07/27/2017 creatinine and potassium rising. Essentially no urine output. Defer to nephrology. Ideally needs dialysis but her blood pressures too low at this time. Current Visit: Yes (2) Ischemia of left lower extremity Status: Acute Assessment and plan: Status post endarterectomy left femoral artery. 07/27/2017 left lower extremity still appears ischemic. Current Visit: Yes (3) COPD (chronic obstructive pulmonary disease) Status: Acute Assessment and plan: Patient admits to having COPD. She is a former smoker. I will put her on regular dosing of DuoNeb's. No bronchospasm at present. I do not see any need for steroids. 07/27/2017 she is not having any bronchospasm. We are using duo nebs. I have not put her on steroids and I do not think it would be helpful at this point. Current Visit: No (4) Postoperative respiratory failure Status: Acute Assessment and plan: ABGs acceptable. We will reduce FiO2. Start weaning trials. Need to get blood pressure stabilized and acidosis improved before we can get her extubated. 07/27/2017 PO2 in the 70s on 50% with 5 of PEEP. Metabolic acidosis. Cannot wean at this point. Current Visit: Yes
[2017-07-27 06:49] LABS: Albumin 2.4 G/DL (3.4-5.0); Bilirubin,Total 0.8 MG/DL (0.2-1.0); Calcium 6.8 MG/DL (8.5-10.1); Osmolality,Calculated 306.8 MOS/KG (273-304); Total Protein 4.1 G/DL (6.4-8.3)
[2017-07-27 06:55] LABS: Potassium 6.1 MMOL/L (3.5-5.1)
--- NOTE | 2017-07-27 07:10 | CT Report ---
History: Generalized abdominal pain. Recent surgery. Recent retroperitoneal hemorrhage Date: 07/27/2017 Study: CT abdomen and pelvis without contrast Comparison exam: June 26, 2017 The study was also reviewed by [facility]. Technique: Spiral CT sections were obtained from the lung bases to the pubic symphysis without contrast CT abdomen: Small bilateral pleural effusions have developed. There is some mild dependent atelectasis in the lower lobes. A nasogastric tube is well-positioned with its tip in the proximal stomach. Pacemaker leads are noted in the partially visualized lower chest. There is some mild pneumatosis of the gastric wall. There is also some minimal pneumatosis coli. There is a small amount of air within peripheral branches of the mesenteric venous system. There is a small amount intrasplenic air. There is no focal splenic mass. The liver and bile ducts are unremarkable. There is nonspecific moderate fluid distention of the gallbladder. There is no focal pancreatic mass. The recently seen right adrenal mass measuring 3.6 cm is unchanged. There is also a smaller left adrenal nodule at 19 mm as before. The kidneys are atrophic without focal lesion. Aortic stent graft is in place. There is no residual aneurysmal dilatation of the aorta. There is no [place] bowel obstruction. Surgical drains are noted in the left lower quadrant of abdomen. There is mild free fluid and postsurgical stranding in the left lower quadrant without definite confined fluid collection to suggest abscess. There is some wall thickening of the colon, more so in the transverse colon region, which suggest some nonspecific colitis. CT pelvis: Thomas catheter is positioned with its lumen of the urinary bladder. There is mild free fluid in the pelvis which could be related to the recent surgery. There is a partially visualized hyperdense hematoma measuring at least 7 x 3 cm in the left infra inguinal area. Preliminary verbal report was given to Dr. Bustos by the [facility] physician at 6:[address] exam was performed using one or more of the following dose reduction techniques: Automated exposure control, adjustment of the mA and/or kV according to patient size, or use of iterative reconstruction technique. Impression: Thickening of the wall of the transverse colon could signify colitis Gastric pneumatosis, pneumatosis coli, and peripheral mesenteric venous air Postsurgical changes in the left lower quadrant Partially visualized left infrainguinal soft tissue hematoma Mild bilateral pleural effusion PROCEDURE INTERPRETED AT [facility] DEPARTMENT OF RADIOLOGY Final Report Signed by: Dr. Yanet Akers
--- NOTE | 2017-07-27 07:41 | Event Note ---
Have discussed the situation with Ms. Rob son Casa Nieto explained at this point she is worse during her overall condition despite our efforts and basically full support. It does appear that she has suffered shock liver which is affecting her clotting profile. She does not appear to be actively bleeding CT does suggest some ischemia of the colon and the stomach. Pneumatosis of the stomach wall and colon although this is not extensive in either case she does have some air in the portal system however. Renal function is worse with increasing BUN and creatinine. I do not believe a laparotomy would likely provide any benefit and it is unlikely she would tolerate that procedure. At this point in time he feels that their concern is that she be comfortable that we do not do resuscitation in the event of arrest and that continued fully aggressive support would not be her desire. At this point we will start turning down the pressor agents and keep her as comfortable as possible
--- NOTE | 2017-07-27 08:07 | XRay Report ---
History: Patient on ventilator Date: 07/27/2017 Study: Chest x-ray AP portable Comparison exam: 07/26/2017 The supporting tubes are unchanged. The cardiomediastinal silhouette is stable. The pulmonary vasculature is not grossly engorged. There is no gross pleural effusion. There is some minor strandy subsegmental atelectasis in the lung bases. There is no obvious new infiltrate to suggest pneumonia. A left subclavian dual-lead transvenous pacemaker is stable. Osseous structures are similar. Surgical hardware overlies the proximal right humerus as before. Impression: No gross overall change compared to the previous study. Mild subsegmental atelectasis in the lung bases PROCEDURE INTERPRETED AT [facility] DEPARTMENT OF RADIOLOGY Final Report Signed by: Dr. Yanet Akers
--- NOTE | 2017-07-27 08:17 | Hematology Consult ---
Assessment and Plan (1) Coagulopathy Status: Acute Assessment and plan: Likely multifactorial including shock liver, consumptive processes, and diffuse organ failure. There is very little to offer from hematology standpoint. FFP can be given if she continues to bleed and we are still trying to be aggressive. Current Visit: Yes (2) Liver failure Status: Acute Current Visit: Yes (3) COPD (chronic obstructive pulmonary disease) Status: Acute Current Visit: No (4) Acute renal failure Status: Acute Current Visit: Yes (5) Hypotension Status: Acute Current Visit: Yes (6) Retroperitoneal hematoma Status: Acute Current Visit: Yes History of Present Illness - Consult Narrative History of present illness: Ms. Antonio is a 82 year old female who is very ill and initially presented with a retroperitoneal hematoma. She was on numerous blood thinning agents at admission including Pradaxa, aspirin, and Plavix. She has received Pradaxa reversing agent. She required removal of the retroperitoneal hematoma but has continued to decline after this. She is now coagulopathic. Her liver appears to be going into failure. She also appears to be developing renal failure. I think her coagulopathy is related to her liver failure. She also likely has some underlying consumptive process giving all of her diffuse organ shutdown. There is very little to offer from hematology standpoint. If she continues to bleed and aggressive measures are warranted, FFP would be her best option. It appears at this point that there is very little that can be done for her. I spoke with Dr. Bustos about her case. CC: Demario Bustos MD - Home Medications and Allergies Home Medications: Home Medications Medication Instructions Recorded Confirmed Type Atorvastatin [Lipitor] 20 mg PO QAM 01/15/16 07/25/17 History Benazepril HCl 20 mg PO QAM #0 01/15/16 07/25/17 History Budesonide/Formoterol 160-4.5 1 puff INH DAILY 01/15/16 07/25/17 History [Symbicort 160-4.5] Dabigatran [Pradaxa] 150 mg PO BID 01/15/16 07/25/17 History Furosemide 40 mg PO QAM 01/15/16 07/25/17 History Metoprolol Tartrate 1 tablet PO BID 01/15/16 07/25/17 History Potassium Chloride 20 meq PO QAM #0 01/15/16 07/25/17 History Albuterol Sulfate [Proair HFA] 2 puff INH Q4H PRN 07/25/17 07/25/17 History Carvedilol [Carvedilol] 3.125 mg PO BID 07/25/17 07/25/17 History Cholecalciferol [Vitamin D3] 2,000 unit PO QAM 07/25/17 07/25/17 History Clopidogrel Bisulfate [Clopidogrel] 75 mg PO QAM 07/25/17 07/25/17 History Meloxicam [Mobic] 7.5 mg PO QAM 07/25/17 07/25/17 History Montelukast Tab [Singulair Tab] 10 mg PO QAM 07/25/17 07/25/17 History Rosuvastatin Calcium [Crestor] 40 mg PO QAM 07/25/17 07/25/17 History Allergies/Adverse Reactions: Allergies Allergy/AdvReac Type Severity Reaction Status Date / Time ampicillin Allergy Severe RASH Verified 02/08/16 06:33 Medical,Surgical,& Family Hx - Medical History Cardio: History of: Aneurysm, Hypertension, Pacemaker ([facility] GETTING RECORDS) HEENT: History of: Eye Problem (CATARACTS) Respiratory: History of: COPD, Obstructive Sleep Apnea (CPAP) Musculoskeletal: History of: Musculoskeletal Problems (FX RIGHT PROXIMAL HUMERUS ) - Surgical History Neurologic Surgeries: Patient denies: Neurologic Surgery HEENT Surgeries: Surgical HX of: Eye Surgery (CATARACTS) Abdominal Surgeries: Patient denies: Abdominal Surgery Reproductive Surgeries: Patient denies;: Gynecologic Surgery Orthopedic Surgeries: Surgical HX of;: Orthopedic Surgery (02/08/16 Sched for ORIF Rt Proximal Humerus) - Family History Family History: Reports;: Family Cancer (father), Family Heart Disease (mother) - Social History Smoking Status: Former smoker Frequency of Alcohol Use: None Type of Drug Use: None ROS unobtainable: due to mental status Exam - Constitutional Vitals: Period Temp Pulse Resp BP Sys/Acosta Pulse Ox Last 24 Hr 97.8 F-99.5 F 84-188 10-35 57-125/30-48 91-100 Results - Labs CBC & BMP: 07/27/17 02:20 07/27/17 05:00 Lab Results: I have reviewed the past 24 hour labs
[2017-07-27] MEDS: SODIUM BICARB INJ 100 MEQ in DEXTROSE 5% 1,000 ML IV SCH (08:50)
[2017-07-27] MEDS ORDERED: HYDROmorphone 2 MG/1 ML VIAL IV PRN (08:51)
[2017-07-27] MEDS: METOPROLOL TARTRATE 25 MG TABLET PO SCH (09:22)
[2017-07-27] MEDS: PANTOPRAZOLE 40 MG VIAL IV SCH (09:25)
--- NOTE | 2017-07-27 09:45 | Anesthesia Post-Op ---
Anesthesia Post OP - Post Ansesthetic Evaluation Patient seen in post op: Yes Resp: other (vent) CV: other (trisha infus, levophed infus) Mental: other (will sometimes arouse) Temp: within normal limits Abke-Bi-Vxgptwaou: within normal limits Nausea and Vomiting: within normal limits Pain: within normal limits Other:: comfort measures, family member at bedside
--- NOTE | 2017-07-27 10:42 | Discharge Summary ---
Hospital Course - Hospital Course Hospital Course: Adriel Antonio an 82-year-old woman was cerumen acutely ischemic left lower leg. He has significant history of atrial fibrillation pacemaker COPD abdominal aortic aneurysm repair done in a different location and known peripheral vascular symptoms. I recommended and performed a left femoral endarterectomy and angioplasty of the left external iliac artery to try to improve perfusion into the left lower leg. Shortly after completing the procedure patient developed severe hypotension and apparent blood loss and a moderate and a retroperitoneal hematoma in the left pelvis is suspected was actively bleeding. He was returned to surgery shortly thereafter and is retroperitoneal hematoma was noted that was not particularly large there was no active bleeding from the external iliac arteries nor anywhere else that I could find. The patient persisted with severe hypotension for the remainder of her hospitalization despite blood transfusions blood and blood product transfusions fluid resuscitation Ahmet-Synephrine and Levophed. She had a CT scan earlier today did not reveal any evidence of significant intra-abdominal bleeding or bleeding elsewhere did indicate pneumatosis of the wall of the stomach with blood in the portal system including into the spleen and also some mild thickening of the transverse colon with some pneumatosis this however did not give the picture of the complete bowel ischemia or perforation. When she had been admitted her BUN and creatinine have been markedly elevated as well as her potassium and this persisted although the creatinine actually dropped a bit for the first 2 days. There had been is evidence of coagulopathy at the time of surgery immediately thereafter probably associated to the Pradaxa and Plavix that she was on previously. Eventually this seem to be reasonably well controlled although the coagulopathy was markedly worse today and did note markedly elevated liver enzymes all of this indicating shock liver and generalized shock. Discussion with her son this morning. Out and did not appear that we had a reasonable hope of her recovering and he agreed to a DO NOT RESUSCITATE status would began turning down her pressor agents and she approximately 2 hours afterwards even though they were not completely turned off Diagnosis - Discharge Diagnosis (1) Ischemia of left lower extremity Status: Acute Discharge Plan - Discharge Data Disposition: - Discharge Medications No Action Benazepril HCl 20 mg PO QAM #0 Atorvastatin [Lipitor] 20 mg PO QAM Dabigatran [Pradaxa] 150 mg PO BID Budesonide/Formoterol 160-4.5 [Symbicort 160-4.5] 1 puff INH DAILY Furosemide 40 mg PO QAM Metoprolol Tartrate 1 tablet PO BID Potassium Chloride 20 meq PO QAM #0 Rosuvastatin Calcium [Crestor] 40 mg PO QAM Montelukast Tab [Singulair Tab] 10 mg PO QAM Meloxicam [Mobic] 7.5 mg PO QAM Carvedilol [Carvedilol] 3.125 mg PO BID Albuterol Sulfate [Proair HFA] 2 puff INH Q4H PRN PRN Reason: Shortness Of Breath/Wheezing Clopidogrel Bisulfate [Clopidogrel] 75 mg PO QAM Cholecalciferol [Vitamin D3] 2,000 unit PO QAM - Follow Up or Referral - Forms/Instructions Exam - Constitutional Vitals: Period Temp Pulse Resp BP Sys/Acosta Pulse Ox Last 24 Hr 97.8 F-99.5 F 84-188 10-35 35-125/25-48 83-100 Discharge Results Procedures and tests throughout hospitalization: Pending Orders 07/25/17 18:30 MRSA Surveillence, Inf Control Routine 07/27/17 12:00 Arterial Blood Gas Routine Basic Metabolic Panel w/Mg Routine 07/28/17 04:00 XR chest 1V portable IN AM Labs on day of discharge: Labs from last 24 hours 07/27/17 07/27/17 07/27/17 05:40 05:00 02:20 WBC RBC Hgb Hct MCV MCH MCHC RDW Plt Count MPV Neut % (Auto) Lymph % (Auto) [place] % (Auto) Eos % (Auto) Baso % (Auto) Neut # (Auto) Lymph # (Auto) [place] # (Auto) Eos # (Auto) Baso # (Auto) Total Counted Immature Gran % Nucleated RBC % Immature Gran # Segmented Neutrophils Band Neutrophils Lymphocytes Monocytes Metamyelocytes Myelocytes Nucleated RBCs Nucleated RBCs # Atypical Lymphocytes Platelet Estimate Immature Plt Fraction Anisocytosis Macrocytosis Ovalocytes INR PT Patient/Control Mix Fibrinogen 166 L Circ Anticoag PTT ABG pH 7.279 L ABG pCO2 39.6 ABG pO2 72.0 L ABG HCO3 18.1 L ABG Total CO2 19.4 L ABG O2 Saturation 93.3 L ABG Base Excess -8.0 L Sodium 144 Potassium 6.1 H* Chloride 112 H Carbon Dioxide 18 L Anion Gap 20.1 H BUN 70 H Creatinine 4.80 H GFR Calculation 9 BUN/Creatinine Ratio 14.00 Glucose 99 POC Glucose Calculated Osmolality 306.8 H Calcium 6.8 L Magnesium Total Bilirubin 0.80 AST 5285 H ALT 3118 H Alkaline Phosphatase 201 H Total Protein 4.1 L Albumin 2.4 L Globulin 1.7 L Albumin/Globulin Ratio 1.4 Blood Type Antibody Screen Crossmatch Blood Bank Comment 07/27/17 07/27/17 07/27/17 02:20 02:20 02:20 WBC RBC Hgb Hct MCV MCH MCHC RDW Plt Count MPV Neut % (Auto) Lymph % (Auto) [place] % (Auto) Eos % (Auto) Baso % (Auto) Neut # (Auto) Lymph # (Auto) [place] # (Auto) Eos # (Auto) Baso # (Auto) Total Counted Immature Gran % Nucleated RBC % Immature Gran # Segmented Neutrophils Band Neutrophils Lymphocytes Monocytes Metamyelocytes Myelocytes Nucleated RBCs Nucleated RBCs # Atypical Lymphocytes Platelet Estimate Immature Plt Fraction Anisocytosis Macrocytosis Ovalocytes INR > 20.0 H* PT Patient/Control Mix > 200.0 D Fibrinogen Circ Anticoag PTT 172.5 H* D ABG pH 7.165 L* D ABG pCO2 44.4 ABG pO2 81.9 ABG HCO3 14.8 L ABG Total CO2 15.3 L ABG O2 Saturation 93.3 L ABG Base Excess -12.2 L Sodium 144 Potassium 6.0 H* Chloride 111 H Carbon Dioxide 18 L Anion Gap 21.0 H BUN 74 H Creatinine 4.70 H GFR Calculation 9 BUN/Creatinine Ratio 15.00 Glucose 105 POC Glucose Calculated Osmolality 307.8 H Calcium 6.6 L Magnesium 2.1 Total Bilirubin AST ALT Alkaline Phosphatase Total Protein Albumin Globulin Albumin/Globulin Ratio Blood Type Antibody Screen Crossmatch Blood Bank Comment 07/27/17 07/27/17 07/26/17 02:20 01:30 22:42 WBC 13.2 H RBC 3.14 L Hgb 9.0 L Hct 27.4 L MCV 87.3 MCH 29 MCHC 32.8 RDW 18.3 H Plt Count 104 L D MPV 11.5 Neut % (Auto) 88.7 H Lymph % (Auto) 4.2 L [place] % (Auto) 5.3 Eos % (Auto) 0.0 Baso % (Auto) 0.2 Neut # (Auto) 11.7 H Lymph # (Auto) 0.6 L [place] # (Auto) 0.7 Eos # (Auto) 0.0 Baso # (Auto) 0.0 Total Counted 100 Immature Gran % 1.6 Nucleated RBC % 1.1 Immature Gran # 0.21 Segmented Neutrophils 38 L Band Neutrophils 20 H Lymphocytes 10 L Monocytes 5 Metamyelocytes 23 Myelocytes 4 Nucleated RBCs 10 H Nucleated RBCs # 0.14 Atypical Lymphocytes Few Platelet Estimate Decreased Immature Plt Fraction 0.0 Anisocytosis 1+ Macrocytosis 1+ Ovalocytes 1+ INR PT Patient/Control Mix Fibrinogen Circ Anticoag PTT ABG pH ABG pCO2 ABG pO2 ABG HCO3 ABG Total CO2 ABG O2 Saturation ABG Base Excess Sodium Potassium Chloride Carbon Dioxide Anion Gap BUN Creatinine GFR Calculation BUN/Creatinine Ratio Glucose POC Glucose 124 H 82 Calculated Osmolality Calcium Magnesium Total Bilirubin AST ALT Alkaline Phosphatase Total Protein Albumin Globulin Albumin/Globulin Ratio Blood Type Antibody Screen Crossmatch Blood Bank Comment 07/26/17 07/26/17 07/26/17 20:44 20:38 20:26 WBC RBC Hgb Hct MCV MCH MCHC RDW Plt Count MPV Neut % (Auto) Lymph % (Auto) [place] % (Auto) Eos % (Auto) Baso % (Auto) Neut # (Auto) Lymph # (Auto) [place] # (Auto) Eos # (Auto) Baso # (Auto) Total Counted Immature Gran % Nucleated RBC % Immature Gran # Segmented Neutrophils Band Neutrophils Lymphocytes Monocytes Metamyelocytes Myelocytes Nucleated RBCs Nucleated RBCs # Atypical Lymphocytes Platelet Estimate Immature Plt Fraction Anisocytosis Macrocytosis Ovalocytes INR PT Patient/Control Mix Fibrinogen Circ Anticoag PTT ABG pH ABG pCO2 ABG pO2 ABG HCO3 ABG Total CO2 ABG O2 Saturation ABG Base Excess Sodium Potassium Chloride Carbon Dioxide Anion Gap BUN Creatinine GFR Calculation BUN/Creatinine Ratio Glucose POC Glucose 76 51 L 39 L* Calculated Osmolality Calcium Magnesium Total Bilirubin AST ALT Alkaline Phosphatase Total Protein Albumin Globulin Albumin/Globulin Ratio Blood Type Antibody Screen Crossmatch Blood Bank Comment 07/26/17 07/26/17 07/26/17 19:00 16:06 16:05 WBC RBC Hgb Hct 28.4 L MCV MCH MCHC RDW Plt Count MPV Neut % (Auto) Lymph % (Auto) [place] % (Auto) Eos % (Auto) Baso % (Auto) Neut # (Auto) Lymph # (Auto) [place] # (Auto) Eos # (Auto) Baso # (Auto) Total Counted Immature Gran % Nucleated RBC % Immature Gran # Segmented Neutrophils Band Neutrophils Lymphocytes Monocytes Metamyelocytes Myelocytes Nucleated RBCs Nucleated RBCs # Atypical Lymphocytes Platelet Estimate Immature Plt Fraction Anisocytosis Macrocytosis Ovalocytes INR PT Patient/Control Mix Fibrinogen Circ Anticoag PTT ABG pH 7.319 L ABG pCO2 30.7 L ABG pO2 92.7 ABG HCO3 16.8 L ABG Total CO2 14.8 L ABG O2 Saturation 96.4 ABG Base Excess -9.4 L Sodium Potassium Chloride Carbon Dioxide Anion Gap BUN Creatinine GFR Calculation BUN/Creatinine Ratio Glucose POC Glucose 74 Calculated Osmolality Calcium Magnesium Total Bilirubin AST ALT Alkaline Phosphatase Total Protein Albumin Globulin Albumin/Globulin Ratio Blood Type Antibody Screen Crossmatch Blood Bank Comment 07/26/17 07/25/17 11:01 23:56 WBC RBC Hgb Hct MCV MCH MCHC RDW Plt Count MPV Neut % (Auto) Lymph % (Auto) [place] % (Auto) Eos % (Auto) Baso % (Auto) Neut # (Auto) Lymph # (Auto) [place] # (Auto) Eos # (Auto) Baso # (Auto) Total Counted Immature Gran % Nucleated RBC % Immature Gran # Segmented Neutrophils Band Neutrophils Lymphocytes Monocytes Metamyelocytes Myelocytes Nucleated RBCs Nucleated RBCs # Atypical Lymphocytes Platelet Estimate Immature Plt Fraction Anisocytosis Macrocytosis Ovalocytes INR PT Patient/Control Mix Fibrinogen Circ Anticoag PTT ABG pH ABG pCO2 ABG pO2 ABG HCO3 ABG Total CO2 ABG O2 Saturation ABG Base Excess Sodium Potassium Chloride Carbon Dioxide Anion Gap BUN Creatinine GFR Calculation BUN/Creatinine Ratio Glucose POC Glucose 93 Calculated Osmolality Calcium Magnesium Total Bilirubin AST ALT Alkaline Phosphatase Total Protein Albumin Globulin Albumin/Globulin Ratio Blood Type Cancelled Antibody Screen Cancelled Crossmatch See Detail Blood Bank Comment Cancelled DS: Provider Date of admission: 07/25/17 17:55 Primary care physician: Ralu Ibrahim Attending physician on admission: Demario Bustos MD Consults: 07/25/17 17:55 Consult to Pastoral Services [CONS] Routine Comment: Pastoral Screen: Request Photocopy Operator Visit Pastoral Screen Source of Request: Family Consult to Physician [CONS] Routine Comment: patient known to you Consulting Provider: Raffaele Brown Consulting Provider Notified: Yes Consult to Specialist Group: Cardiology Person Notified: SRIRAM Date Notified: 07/26/17 Time Notified: 08:55 Consult Notification Comment: ALREADY SEEN PT. 07/25/17 18:02 Consult to Physician [CONS] Routine Comment: Consulting Provider: Compa Diana Consult to Specialist Group: Pulmonology When should Consulting Provider be notified: Now Person Notified: dr diana Date Notified: 07/25/17 Time Notified: 19:31 Consult Notification Comment: notified of consult, ABG reviewed, vent changes made 07/25/17 20:33 Consult to Physician [CONS] Routine Comment: Consulting Provider: Remy Ortiz Consulting Provider Notified: Yes Consult to Specialist Group: Nephrology Person Notified: DAYO Date Notified: 07/26/17 Time Notified: 08:35 07/26/17 06:38 Consult to Physician [CONS] Routine Comment: Consulting Provider: Remy Ortiz Consulting Provider Notified: Yes Consult to Specialist Group: Nephrology When should Consulting Provider be notified: Now Person Notified: DAYO Date Notified: 07/26/17 Time Notified: 08:35 07/26/17 08:09 Consult to Physician [CONS] Routine Comment: Consulting Provider: Lb Lara Consulting Provider Notified: Yes Consult to Specialist Group: Hematology When should Consulting Provider be notified: Now Person Notified: cira Date Notified: 07/26/17 Time Notified: 08:45 07/26/17 08:10 Consult to Physician [CONS] Routine Comment: Consulting Provider: Discharging clinician: Demario Bustos MD
[2017-07-27 10:49] VITALS: BP 14/14
--- NOTE | 2017-07-27 12:20 | Cardiology Progress Note ---
Sukh Aguirre Lesley, BERTA, am scribing for, and in the presence of, Raffaele Brown MD 12:19. Assessment and Plan - Time spent with patient Time spent with patient: Greater than 30 minutes (record review, assessment, and documentation) (1) Ischemia of left lower extremity Status: Acute Current Visit: Yes (2) Acute renal failure Status: Acute Current Visit: Yes (3) Postoperative respiratory failure Status: Acute Current Visit: Yes (4) Hypotension Status: Acute Current Visit: Yes (5) Retroperitoneal hematoma Status: Acute Current Visit: Yes (6) Tachycardia Status: Acute Current Visit: Yes (7) Liver failure Status: Acute Current Visit: Yes (8) Coagulopathy Status: Acute Current Visit: Yes Cardiology - PN: Subj Interval history: [employer]: Dr. Brown The patient is seen and examined in ICU, she is intubated and therefore all information is obtained from medical records. Ms. Antonio is a 82 year old female, known to Dr. Brown. She has a past medical history significant for hypertension, hyperlipidemia, mitral regurgitation, paroxysmal atrial fibrillation, peripheral vascular disease, sleep apnea, CAD, pacemaker, and COPD. Past surgical history include abdominal aortic aneurysm repair, arm surgery, status post cardiac pacemaker, shoulder surgery, previous stent of bilateral iliacs. She was most recently seen by Dr. Brown in clinic 07/10/17 for a workup for claudication symptoms due to severe bilateral PAD. She had a history of bilateral stents including AAA endograft extending into the iliacs. ABIs showed diminished perfusion at 0.48 on the right and 0.22 on the left, and CTA showed long bilateral SFA occlusions with patent tibials per critical left popliteal disease as well. She was scheduled for peripheral angiography with intervention with Dr. Kunz but in the meantime presented with acute ischemic changes of her left leg. Apparently the left leg became cold with color changes noted, when she presented to the [facility] ER for and subsequently was transferred to [facility] ER. The patient was taken to surgery by Dr. Bustos on 07/25/17 due to acutely ischemic left leg for left femoral endarterectomy with left external iliac stent. The patient ended up urgently back to the OR to evacuate a retroperitoneal hematoma. She had a significant drop in her H&H at 6 and 19. The patient was transfused with total 6 units packed RBCs, 4 units of FFP, 1 unit of platelets. The patient is awake, but still intubated and on the ventilator. She follows simple commands with bilateral upper extremities. She has remained hypotensive , and is on a Ahmet-Synephrine infusion at 300 mcg per minute to support her blood pressure. She does appear to have some discomfort about the abdomen upon exam which is likely expected after her surgery. Echocardiogram revealed normal left ventricular size, and check EF 60-65%, mild concentric left ventricular hypertrophy, mildly enlarged right atrium, pacer lead noted in the right heart. Chest x-ray reveals stable appearance of life support tubing, no infiltrates, effusions, or pneumothorax. Pulmonary has been consulted for ventilator management. The plan for today will be to add sedation while the patient is intubated. Wean Ahmet-Synephrine to achieve better perfusion of lower extremities as her hypotension allows. We will hold all cardiac medications, as the patient is in sinus tachycardia which is likely physiologic due to critical illness. Hematology has been consulted as well for abnormal clotting times. 2016: The patient is alert, nodding her head to questions. Abdomen more distended today. Unfortunately the patient has remained hypotensive, despite fluid boluses and albumin given, Dopamine infusion was added to Neosynephrine for support. The patient's heart rate continued to increase, and Dopa was changed to Levophed. She is in respiratory failure and on the ventilator with a severe respiratory acidosis, and now apparently in multi organ failure, renal and liver. The patient has persistent hyperkalemia and worsening renal function, hypotension would not allow for hemodialysis. CT of the abdomen and pelvis suggest some ischemia of colon and stomach, pneumatosis of the stomach wall and colon noted, some air in the portal system. Her son is at the bedside this morning and decided comfort measures only for the patient. Agree with slowly turning vasopressors down and providing comfort measures. ROS: present: color change to bilateral feet present: critically ill with ventilator support present: distended abdomen, pt. winces with light palpation IMPRESSION AND PLAN: 1. RESPIRATORY FAILURE - severe respiratory acidosis, continue support. 2. HYPOVOLEMIC SHOCK - weaning Ahmet-Synephrine and Levophed, comfort measures only.. 3. SEVERE ISCHEMIC PAD - progression of color change to bilateral lower extremities, no pulses, cool to palpation. 4. ANEMIA - currently stable, no evidence of active bleeding through drains or on abd/pelvic CT. 5. LIVER SHOCK/FAILURE - pt. now comfort measures only, clotting factors significantly abnormal. 6. ACUTE RENAL FAILURE - hypotension would not allow for hemodialysis. 7. CAD - EF 65%, permanent cardiac pacemaker. Exam (Progress Note) - Constitutional Vitals: Period Temp Pulse Resp BP Sys/Acosta Pulse Ox Last 24 Hr 97.8 F-99.5 F 84-188 10-35 56-125/30-48 90-100 General appearance: over weight - Head Head exam: Present: normal inspection - Eye Eye exam: Present: periorbital swelling Pupils: Present: VARGAS - Respiratory Respiratory exam: Present: other (coarse bilaterally, respirations per ventilator) - Cardiovascular Cardiovascular exam: Present: regular rate and rhythm, tachycardia - GI/Abdominal GI/Abdominal exam: Present: distended, hypoactive bowel sounds, tenderness - Additional comments: foster catheter intact little to no urine output - Extremities Exam Extremities exam: Present: other (bilateral legs with progressive mottling/with left toes turning black) - Neurological Exam Neurological exam: Present: alert - Skin Skin exam: Present: mottled (progressive to bilateral feet, toes on left foot black) Result/EKG - Labs CBC & BMP: 07/27/17 02:20 07/27/17 05:00 Lab Results: I have reviewed the past 24 hour labs Labs: Laboratory Results - last 24 hr 07/25/17 07/26/17 07/26/17 23:56 08:35 08:35 WBC RBC Hgb Hct MCV MCH MCHC RDW Plt Count 156 MPV Neut % (Auto) Lymph % (Auto) [place] % (Auto) Eos % (Auto) Baso % (Auto) Neut # (Auto) Lymph # (Auto) [place] # (Auto) Eos # (Auto) Baso # (Auto) Total Counted Immature Gran % Nucleated RBC % Immature Gran # Segmented Neutrophils Band Neutrophils Lymphocytes Monocytes Metamyelocytes Myelocytes Nucleated RBCs Nucleated RBCs # Atypical Lymphocytes Platelet Estimate Immature Plt Fraction Anisocytosis Macrocytosis Ovalocytes INR 2.0 PT Patient/Control Mix 21.0 D Fibrinogen 227 Circ Anticoag PTT 54.3 H D Plt Func Screen - ADP 98 Plt Func Scrn - Epineph 162 H ABG pH ABG pCO2 ABG pO2 ABG HCO3 ABG Total CO2 ABG O2 Saturation ABG Base Excess Hemoglobin Hematocrit Potassium Glucose Sodium Chloride Carbon Dioxide Anion Gap BUN Creatinine GFR Calculation BUN/Creatinine Ratio POC Glucose Calculated Osmolality Calcium Magnesium Total Bilirubin AST ALT Alkaline Phosphatase Total Protein Albumin Globulin Albumin/Globulin Ratio Blood Type Cancelled Antibody Screen Cancelled Crossmatch See Detail Blood Bank Comment Cancelled 07/26/17 07/26/17 07/26/17 08:35 11:01 16:05 WBC RBC Hgb Hct MCV MCH MCHC RDW Plt Count MPV Neut % (Auto) Lymph % (Auto) [place] % (Auto) Eos % (Auto) Baso % (Auto) Neut # (Auto) Lymph # (Auto) [place] # (Auto) Eos # (Auto) Baso # (Auto) Total Counted Immature Gran % Nucleated RBC % Immature Gran # Segmented Neutrophils Band Neutrophils Lymphocytes Monocytes Metamyelocytes Myelocytes Nucleated RBCs Nucleated RBCs # Atypical Lymphocytes Platelet Estimate Immature Plt Fraction Anisocytosis Macrocytosis Ovalocytes INR PT Patient/Control Mix Fibrinogen Circ Anticoag PTT Plt Func Screen - ADP Plt Func Scrn - Epineph ABG pH 7.411 ABG pCO2 36.7 ABG pO2 93.6 ABG HCO3 22.8 ABG Total CO2 23.9 ABG O2 Saturation 96.8 ABG Base Excess -1.5 Hemoglobin 10.4 L Hematocrit 31.0 L Potassium 5.4 H Glucose 78 Sodium Chloride Carbon Dioxide Anion Gap BUN Creatinine GFR Calculation BUN/Creatinine Ratio POC Glucose 93 74 Calculated Osmolality Calcium Magnesium Total Bilirubin AST ALT Alkaline Phosphatase Total Protein Albumin Globulin Albumin/Globulin Ratio Blood Type Antibody Screen Crossmatch Blood Bank Comment 07/26/17 07/26/17 07/26/17 16:06 19:00 20:26 WBC RBC Hgb Hct 28.4 L MCV MCH MCHC RDW Plt Count MPV Neut % (Auto) Lymph % (Auto) [place] % (Auto) Eos % (Auto) Baso % (Auto) Neut # (Auto) Lymph # (Auto) [place] # (Auto) Eos # (Auto) Baso # (Auto) Total Counted Immature Gran % Nucleated RBC % Immature Gran # Segmented Neutrophils Band Neutrophils Lymphocytes Monocytes Metamyelocytes Myelocytes Nucleated RBCs Nucleated RBCs # Atypical Lymphocytes Platelet Estimate Immature Plt Fraction Anisocytosis Macrocytosis Ovalocytes INR PT Patient/Control Mix Fibrinogen Circ Anticoag PTT Plt Func Screen - ADP Plt Func Scrn - Epineph ABG pH 7.319 L ABG pCO2 30.7 L ABG pO2 92.7 ABG HCO3 16.8 L ABG Total CO2 14.8 L ABG O2 Saturation 96.4 ABG Base Excess -9.4 L Hemoglobin Hematocrit Potassium Glucose Sodium Chloride Carbon Dioxide Anion Gap BUN Creatinine GFR Calculation BUN/Creatinine Ratio POC Glucose 39 L* Calculated Osmolality Calcium Magnesium Total Bilirubin AST ALT Alkaline Phosphatase Total Protein Albumin Globulin Albumin/Globulin Ratio Blood Type Antibody Screen Crossmatch Blood Bank Comment 07/26/17 07/26/17 07/26/17 20:38 20:44 22:42 WBC RBC Hgb Hct MCV MCH MCHC RDW Plt Count MPV Neut % (Auto) Lymph % (Auto) [place] % (Auto) Eos % (Auto) Baso % (Auto) Neut # (Auto) Lymph # (Auto) [place] # (Auto) Eos # (Auto) Baso # (Auto) Total Counted Immature Gran % Nucleated RBC % Immature Gran # Segmented Neutrophils Band Neutrophils Lymphocytes Monocytes Metamyelocytes Myelocytes Nucleated RBCs Nucleated RBCs # Atypical Lymphocytes Platelet Estimate Immature Plt Fraction Anisocytosis Macrocytosis Ovalocytes INR PT Patient/Control Mix Fibrinogen Circ Anticoag PTT Plt Func Screen - ADP Plt Func Scrn - Epineph ABG pH ABG pCO2 ABG pO2 ABG HCO3 ABG Total CO2 ABG O2 Saturation ABG Base Excess Hemoglobin Hematocrit Potassium Glucose Sodium Chloride Carbon Dioxide Anion Gap BUN Creatinine GFR Calculation BUN/Creatinine Ratio POC Glucose 51 L 76 82 Calculated Osmolality Calcium Magnesium Total Bilirubin AST ALT Alkaline Phosphatase Total Protein Albumin Globulin Albumin/Globulin Ratio Blood Type Antibody Screen Crosslatch Blood Bank Comment 07/27/17 07/27/17 07/27/17 01:30 02:20 02:20 WBC 13.2 H RBC 3.14 L Hgb 9.0 L Hct 27.4 L MCV 87.3 MCH 29 MCHC 32.8 RDW 18.3 H Plt Count 104 L D MPV 11.5 Neut % (Auto) 88.7 H Lymph % (Auto) 4.2 L [place] % (Auto) 5.3 Eos % (Auto) 0.0 Baso % (Auto) 0.2 Neut # (Auto) 11.7 H Lymph # (Auto) 0.6 L [place] # (Auto) 0.7 Eos # (Auto) 0.0 Baso # (Auto) 0.0 Total Counted 100 Immature Gran % 1.6 Nucleated RBC % 1.1 Immature Gran # 0.21 Segmented Neutrophils 38 L Band Neutrophils 20 H Lymphocytes 10 L Monocytes 5 Metamyelocytes 23 Myelocytes 4 Nucleated RBCs 10 H Nucleated RBCs # 0.14 Atypical Lymphocytes Few Platelet Estimate Decreased Immature Plt Fraction 0.0 Anisocytosis 1+ Macrocytosis 1+ Ovalocytes 1+ INR PT Patient/Control Mix Fibrinogen Circ Anticoag PTT Plt Func Screen - ADP Plt Func Scrn - Epineph ABG pH ABG pCO2 ABG pO2 ABG HCO3 ABG Total CO2 ABG O2 Saturation ABG Base Excess Hemoglobin Hematocrit Potassium 6.0 H* Glucose 105 Sodium 144 Chloride 111 H Carbon Dioxide 18 L Anion Gap 21.0 H BUN 74 H Creatinine 4.70 H GFR Calculation 9 BUN/Creatinine Ratio 15.00 POC Glucose 124 H Calculated Osmolality 307.8 H Calcium 6.6 L Magnesium 2.1 Total Bilirubin AST ALT Alkaline Phosphatase Total Protein Albumin Globulin Albumin/Globulin Ratio Blood Type Antibody Screen Crossmatch Blood Bank Comment 07/27/17 07/27/17 07/27/17 02:20 02:20 02:20 WBC RBC Hgb Hct MCV MCH MCHC RDW Plt Count MPV Neut % (Auto) Lymph % (Auto) [place] % (Auto) Eos % (Auto) Baso % (Auto) Neut # (Auto) Lymph # (Auto) [place] # (Auto) Eos # (Auto) Baso # (Auto) Total Counted Immature Gran % Nucleated RBC % Immature Gran # Segmented Neutrophils Band Neutrophils Lymphocytes Monocytes Metamyelocytes Myelocytes Nucleated RBCs Nucleated RBCs # Atypical Lymphocytes Platelet Estimate Immature Plt Fraction Anisocytosis Macrocytosis Ovalocytes INR > 20.0 H* PT Patient/Control Mix > 200.0 D Fibrinogen 166 L Circ Anticoag PTT 172.5 H* D Plt Func Screen - ADP Plt Func Scrn - Epineph ABG pH 7.165 L* D ABG pCO2 44.4 ABG pO2 81.9 ABG HCO3 14.8 L ABG Total CO2 15.3 L ABG O2 Saturation 93.3 L ABG Base Excess -12.2 L Hemoglobin Hematocrit Potassium Glucose Sodium Chloride Carbon Dioxide Anion Gap BUN Creatinine GFR Calculation BUN/Creatinine Ratio POC Glucose Calculated Osmolality Calcium Magnesium Total Bilirubin AST ALT Alkaline Phosphatase Total Protein Albumin Globulin Albumin/Globulin Ratio Blood Type Antibody Screen Crossmatch Blood Bank Comment 07/27/17 07/27/17 05:00 05:40 WBC RBC Hgb Hct MCV MCH MCHC RDW Plt Count MPV Neut % (Auto) Lymph % (Auto) [place] % (Auto) Eos % (Auto) Baso % (Auto) Neut # (Auto) Lymph # (Auto) [place] # (Auto) Eos # (Auto) Baso # (Auto) Total Counted Immature Gran % Nucleated RBC % Immature Gran # Segmented Neutrophils Band Neutrophils Lymphocytes Monocytes Metamyelocytes Myelocytes Nucleated RBCs Nucleated RBCs # Atypical Lymphocytes Platelet Estimate Immature Plt Fraction Anisocytosis Macrocytosis Ovalocytes INR PT Patient/Control Mix Fibrinogen Circ Anticoag PTT Plt Func Screen - ADP Plt Func Scrn - Epineph ABG pH 7.279 L ABG pCO2 39.6 ABG pO2 72.0 L ABG HCO3 18.1 L ABG Total CO2 19.4 L ABG O2 Saturation 93.3 L ABG Base Excess -8.0 L Hemoglobin Hematocrit Potassium 6.1 H* Glucose 99 Sodium 144 Chloride 112 H Carbon Dioxide 18 L Anion Gap 20.1 H BUN 70 H Creatinine 4.80 H GFR Calculation 9 BUN/Creatinine Ratio 14.00 POC Glucose Calculated Osmolality 306.8 H Calcium 6.8 L Magnesium Total Bilirubin 0.80 AST 5285 H ALT 3118 H Alkaline Phosphatase 201 H Total Protein 4.1 L Albumin 2.4 L Globulin 1.7 L Albumin/Globulin Ratio 1.4 Blood Type Antibody Screen Crossmatch Blood Bank Comment - Diagnostic Findings Procedure: Chest x-ray: report reviewed by me, CT Abdomen and Pelvis: report reviewed by me - EKG EKG results: sinus rhythm EKG shows: tachycardia Stephanie Aguirre Michael, MD, personally performed the services described in this documentation, ascribed by Ivett Luz NP in my presence, and it is both accurate and complete 219 .
[2017-07-27] MEDS: BUDESONIDE/FORMOTEROL 160-4.5 INHALER 6 GM INH SCH (12:23)
--- NOTE | 2017-07-27 13:18 | Pathology Report from [facility] ---
[facility] ACCESSION # : [id number] PATIENT NAME : Adriel Gunter ORDERING DR : WILLIAM MOORE MD CLINICAL HX: Acutely ischemic LT lower leg POST-OP DX: Same SPECIMEN INFO: Plaque, LT femoral GROSS DESCRIPTION: Received in formalin labeled ADRIEL GUNTER consists of four fragments of endarterectomy tissue measuring 0.8 x 0.7 cm collectively with marked calcification present. [employer] sections are submitted in one cassette following decalcification. DIAGNOSIS FOR ADRIEL GUNTER: LEFT FEMORAL PLAQUE, ENDARTERECTOMY: Calcified atheromatous plaque. COLLECTED DATE: 07/26/2017 [facility] REPORT DATE: 07/27/2017 ELECTRONICALLY SIGNED BY: Qian Cisse M.D. 07/27/2017 - 11:03:[facility]
--- NOTE | 2017-07-31 05:30 | Order Completion Report ---
See report scanned to EMR
== END 2017-07-27 10:24 | disposition expired | DRG 252 ==
LOC: EDUNIT# → EDBD → N.ED 11:23 → N.3E 16:00 → N.ED 17:10 → N.3E 17:12 → N.ICU 17:55
PROVIDERS: ADMIT Surgery; ATTEND Surgery
PROC: EXPLORE (2017-07-25 19:52)